=== PATIENT | female | born 1940 | race Caucasian/White ===

== ENCOUNTER → 2017-01-07 15:39 | Outpatient (CLI) | payer MEDICARE ==
[2016-05-05 02:56] VITALS: BMI 31.8
[~2017-01-07 15:39] MED LIST: COREG12.5 MG PO; COREG25 MG PO; COUMADIN5 MG PO; GLIMEPIRIDE1 MG PO; GLUCOPHAGE1000 MG PO; LANOXIN250 MCG PO; NORVASC10 MG PO; OMEPRAZOLE20 M1 PO; PRINIVIL10 MG PO
[2017-01-07 16:46] LABS: INR 2.88 (0.85-1.17); PROTIME 30.4 SECONDS (11.6-15.0)
== END | disposition home or self-care (01) ==
LOC: D.LABREF 15:39
PROVIDERS: Family Medicine
DX: I48.91 Unspecified atrial fibrillation (principal)

== ENCOUNTER → 2017-02-06 18:40 | Outpatient (CLI) | payer MEDICARE ==
[2016-05-05 02:56] VITALS: BMI 31.8
[2017-02-06 20:07] LABS: INR 1.9 (0.85-1.17); PROTIME 21.8 SECONDS (11.6-15.0)
== END | disposition home or self-care (01) ==
LOC: D.LABREF 18:40
PROVIDERS: Family Medicine
DX: Z79.01 Long term (current) use of anticoagulants (principal); Z51.81 Encounter for therapeutic drug level monitoring

== ENCOUNTER → 2017-02-26 14:25 | Outpatient (CLI) | payer MEDICARE ==
[2016-05-05 02:56] VITALS: BMI 31.8
[2017-02-26 15:41] LABS: INR 2.76 (0.85-1.17); PROTIME 29.4 SECONDS (11.6-15.0)
== END | disposition home or self-care (01) ==
LOC: D.LABREF 14:25
PROVIDERS: Family Medicine
DX: Z51.81 Encounter for therapeutic drug level monitoring (principal); Z79.01 Long term (current) use of anticoagulants

== ENCOUNTER → 2017-03-28 19:14 | Outpatient (CLI) | payer MEDICARE ==
[2016-05-05 02:56] VITALS: BMI 31.8
[2017-03-28 19:49] LABS: INR 3.32 (0.85-1.17)
== END | disposition home or self-care (01) ==
LOC: D.LABREF 19:14
PROVIDERS: Family Medicine
DX: I48.91 Unspecified atrial fibrillation (principal)

== ENCOUNTER → 2017-04-30 19:31 | Outpatient (CLI) | payer MEDICARE ==
[2016-05-05 02:56] VITALS: BMI 31.8
[2017-04-30 19:53] LABS: INR 4.92 (0.85-1.17); PROTIME 46.6 SECONDS (11.6-15.0)
== END | disposition home or self-care (01) ==
LOC: D.LABREF 19:31
PROVIDERS: Family Medicine
DX: I48.91 Unspecified atrial fibrillation (principal)

== ENCOUNTER → 2017-07-30 20:50 | Outpatient (CLI) | payer MEDICARE ==
[2016-05-05 02:56] VITALS: BMI 31.8
[2017-07-30 21:33] LABS: INR 2.43 (0.85-1.17); PROTIME 26.5 SECONDS (11.6-15.0)
== END | disposition home or self-care (01) ==
LOC: D.LABREF 20:50
PROVIDERS: Family Medicine
DX: I48.91 Unspecified atrial fibrillation (principal)

== ENCOUNTER → 2017-08-02 08:25 | Outpatient (CLI) | payer MEDICARE ==
[2016-05-05 02:56] VITALS: BMI 31.8
== END | disposition home or self-care (01) ==
LOC: D.RAD 08:25
DX: R13.10 Dysphagia, unspecified (principal)

== ENCOUNTER → 2018-04-18 07:08 | Outpatient (CLI) | payer MEDICARE ==
[2016-05-05 02:56] VITALS: BMI 31.8
== END | disposition home or self-care (01) ==
LOC: D.MAMMO 07:08
DX: Z12.31 Encounter for screening mammogram for malignant neoplasm of breast (principal); R07.9 Chest pain, unspecified

== ENCOUNTER → 2018-04-22 07:13 | Outpatient (CLI) | payer MEDICARE ==
[2016-05-05 02:56] VITALS: BMI 31.8
[~2018-04-22 07:13] MED LIST changes: +ALPHAGAN P15 ML EACH EYE; +CARAFATE1 G/10 ML PO; +COUMADIN7.5 MG PO; +FLORASTOR250 MG PO; +LEVAQUIN250 MG PO; +LOVENOX40 MG/0.4 SC; +NORCO 7.5/325 T1 TA1 PO; +PLAVIX75 MG PO; +PROTONIX40 MG PO
== END | disposition home or self-care (01) ==
LOC: D.CT 07:13
DX: R13.10 Dysphagia, unspecified (principal)

== ENCOUNTER → 2018-05-15 07:51 | Outpatient (CLI) | payer MEDICARE ==
[2016-05-05 02:56] VITALS: BMI 31.8
[2018-05-15 08:38] LABS: ANION GAP 14.3 mmol/L (8-16); CREATININE - SERUM 1.8 mg/dL (0.6-1.3); POTASSIUM - SERUM 3.3 mmol/L (3.5-5.1)
== END | disposition home or self-care (01) ==
LOC: D.LAB 07:51 → D.MRI 08:30 → D.MAMMO 09:30
PROVIDERS: Family Medicine
DX: R16.0 Hepatomegaly, not elsewhere classified (principal)

== ENCOUNTER 2018-05-19 21:35 | Inpatient (IN) | payer MEDICARE ==
[~2018-05-19] VITALS: Ht 162.6 cm; Wt 75.1 kg
--- NOTE | ~2018-05-19 | OP ---
PATIENT NAME: PAPO MAHMOOD MEDICAL RECORD: [id number] :40 LOCATION:D.M2 D.2120 ADMISSION DATE:05/20/18 SURGEON: RODNEY MARTINEZ MD DATE OF OPERATION: 05/22/2018 SURGEON: Rodney Martinez MD ANESTHESIA: General, Dr. Meneses. OPERATION PERFORMED: Insertion of single chamber pacing system. PREOPERATIVE DIAGNOSIS: Chronic atrial fibrillation with profound bradycardia. POSTOPERATIVE DIAGNOSES: Chronic atrial fibrillation with profound bradycardia. INDICATION FOR OPERATION: Bradycardia. FINDINGS OF THE OPERATION: The pacemaker Medtronic model #A3SR01, serial #[id number]. Right ventricular lead Medtronic model #5076-52, serial #[id number]. LEAD ANALYSIS: Atrial lead none. Ventricular lead, threshold 0.3 volts, current lead threshold 0.5 milliamps, resistance 1110 ohms. R-wave 12.4, slew rate 2.3. ESTIMATED BLOOD LOSS: Less than 3 mL. DESCRIPTION OF PROCEDURE: After informed consent, adequate preoperative medication evaluation, the patient was brought to the operating room, placed on the table in the supine position. After induction of general endotracheal anesthesia and application of appropriate monitoring devices, left chest was prepped and draped in sterile field, utilizing Betadine scrub, alcohol, and Betadine solution. A Betadine-impregnated drape was also used, 1% lidocaine was infiltrated in the left subclavicular space. Incision was made. Dissection carried down to the fascia. A pacemaker pocket was formed. Subclavian vein was cannulated with the introducers, leads placed in the heart. The above electrophysiologic study was done. Leads were found to be in good position. The leads were secured. The leads were then connected to pulse generator and pacemaker placed in the pocket. Pacemaker fired, captured, and sensed appropriately. Pocket was irrigated. Instrument count and sponge count were correct times 2. The pacemaker was suspended from the muscle. Instrument count, sponge count again correct. The wound was closed in layers utilizing 3-0 Vicryl on deep subcutaneous tissue, 3-0 Vicryl on superficial subcutaneous tissue, and 5-0 subcuticular Monocryl on skin. Sterile dressings were applied. The patient tolerated the procedure well and was transferred to the ICU in satisfactory condition. TRANSINT:[id number] Voice Confirmation ID: [id number] DOCUMENT ID: [id number] OPERATIVE REPORT [id number] PAPO MAHMOOD EDWARD MD at 1309 CC: [id number] DICTATION DATE: 05/22/18 170 AREA MANAGER: 05/22/18 1728 DIS IN 05/28/18 [place] [address] [address] [place] [address]
--- NOTE | ~2018-05-19 | OP ---
PATIENT NAME: PAPO MAHMOOD MEDICAL RECORD: [id number] :40 LOCATION:D.M2 D.2120 ADMISSION DATE:05/20/18 SURGEON: EMILY VEGA MD DATE OF OPERATION: 05/25/2018 DATE OF SERVICE: 05/25/2018 PROCEDURES: 1. Left heart catheterization. 2. Selective coronary angiography. 3. Left ventriculogram. INDICATION: Myocardial infarction. DESCRIPTION OF PROCEDURE: After informed consent was obtained, after detailed description of risks, benefits as well as alternative therapies, the patient elected to proceed with angiogram and heart catheterization. The right femoral area was prepped and draped in normal sterile fashion. Right femoral artery was cannulated via modified Seldinger technique with placement of 5-Colombian sheath. All catheters exchanged through this sheath. FINDINGS: Left ventriculogram was performed in standard 30-degree VIVAS view, reveals inferoapical hypokinesis. Overall ejection fraction 40%. SELECTIVE CORONARY ANGIOGRAPHY: Left main, left anterior descending, left circumflex, right coronary artery are all smooth-walled vessels with no angiographic evidence of coronary artery disease. OVERALL IMPRESSION: 1. No angiographic evidence of coronary artery disease. 2. Mildly depressed left ventricular systolic function. Most likely her myocardial infarction with an embolic event from the atrial fibrillation down the left anterior descending; however, the left anterior descending is widely patent now. No significant coronary artery disease is present. Center medical management on anticoagulation for the atrial fibrillation. TRANSINT:[id number] Voice Confirmation ID: [id number] DOCUMENT ID: [id number] EMILY VEGA MD at 1741 CC: [id number] DICTATION DATE: 05/25/18 1055 BURR PICKER: 05/25/18 1238 DIS IN 05/28/18 [place] [address] [place] [address]
--- NOTE | ~2018-05-19 | DS ---
PATIENT:PAPO MAHMOOD :40 MEDICAL RECORD: [id number] DISCHARGE SUMMARY ADMISSION DATE: 05/20/18 DISCHARGE DATE: 05/28/18 DATE OF ADMISSION: 05/20/2018 DATE OF DISCHARGE: 05/28/2018 CONDITION ON DISCHARGE: Improved. ADMITTING DIAGNOSES: Abdominal pain, dehydration, diabetes mellitus, bradycardia, chronic atrial fibrillation, hypertension. DISCHARGE DIAGNOSES: Chest pain, chronic atrial fib, acute myocardial infarction, acute kidney failure, urinary tract infection, bradycardia, diabetes mellitus, pseudomonas, hypokalemia, hypocalcemia, hypomagnesemia. PROCEDURE: Pacemaker placement. HOSPITAL COURSE: A 77-year-old female who had 2-week history of abdominal pain and nausea. She was evaluated in the office by Dr. Up and found to have a normal CBC, was given IV fluids, felt that the patient had worsened overnight with nausea and vomiting, presented to the Emergency Room. CT scan showed possible small bowel enteritis. The patient also had Coumadin as well as dig toxicity. It was felt the patient warranted admission. On physical examination, she was afebrile. She did have significant bradycardia. The patient was admitted. Echocardiogram was performed. Echocardiogram revealed left ventricular chamber size to be within normal limits. Her ejection fraction was 40%. She did have hypokinesis at the apex. Left atrium, right atrium, right ventricle sizes were mildly dilated. Valvular structures had normal structure and motion. Aquj-ou-qzvyrnht mitral regurg. Moderate tricuspid regurg. No other valvular insufficiency or stenosis were noted. No mural thrombus. She was seen by Dr. Wheeler, her radiation control technician. Her digoxin and Coumadin had been held. She was placed on Flagyl. The patient underwent a heart cath. Overall, no angiographic evidence of coronary artery disease, mildly depressed left ventricular systolic function. Most likely her myocardial infarction with an old embolic event from atrial fibrillation down the left descending, however, the left anterior descending widely patent. The patient's condition continued to slowly improve. She was seen in consultation by Dr. Martinez, cardiovascular surgeon. He did place a pacemaker in the left anterior chest on the afternoon of May 22. On May, the patient's symptoms had totally resolved. She was treated with Keflex for UTI. On May, white count was 7.9, hemoglobin 10.7, hematocrit was 32.7, and her platelets were 282. Sodium was 141, potassium 3.3, chloride was 101, CO2 is 34.6, BUN 11, creatinine 1.4, magnesium was slightly low at 1.3. Urine did grow out pseudomonas and VRE. Clostridium difficile was negative. Her PT was 17.1 with an INR of 1.44. The patient was therefore discharged. DISCHARGE MEDICATIONS: She was discharged on Levaquin 250 mg 1 p.o. every day for 7 days, Plavix 75 mg 1 p.o. every day, Coumadin 7.5 mg daily, carvedilol 25 mg p.o. b.i.d., Protonix 40 mg once a day, Florastor 250 mg capsules once a day, Carafate 1 g q.a.c. and at bedtime. Her digoxin had been discontinued as well as omeprazole. DISCHARGE INSTRUCTIONS: The patient was to continue metformin 1000 mg p.o. DISCHARGE SUMMARY REPORT [id number] PAPO MAHMOOD b.i.d., lisinopril 10 mg once a day, amlodipine 10 mg once a day, Amaryl 1 mg p.o. every day. The patient was discharged home on a 2200-calorie ADA diet. ACTIVITIES: Ad mari. FOLLOWUP: She was to follow up with Dr. Up the following day. She would call for appointment with the physiognomist as well as the radiation control technician. TRANSINT:[id number] Voice Confirmation ID: [id number] DOCUMENT ID: [id number] KAYLA LBANCO MD at 0729 CC: [id number] DICTATION DATE: 07/20/18 1116 AUTOCAD OPERATOR: 07/21/18 0437 DIS IN 05/28/18 [place] [id number]
--- NOTE | ~2018-05-19 | EC ---
PATIENT:PAPO MAHMOOD DATE OF SERVICE: 05/20/18 SEX: F MEDICAL RECORD: [id number] DATE OF : 40 LOCATION:D.M2 D.212 AGE OF PATIENT: 77 ADMISSION DATE: 05/20/18 REFERRING PHYSICIAN: INTERPRETING PHYSICIAN: EMILY VEGA MD ECHOCARDIOGRAM REPORT ECHO CHARGES 5 ECHO LIMITED Date: 05/23 CLINICAL DIAGNOSIS: SOB POST PACEMAKER ECHOCARDIOGRAPHIC MEASUREMENTS (adult normal given) AC root (d.<3.7cm) 3.4 cm LV Septum d (<1.2 cm> 1.4 cm Valve Excursion 1.5 cm LV Septum (systole) 1.6 cm Left Atria (s.<4.0cm> 4.4 cm LVPW d(<1.2cm) 1.4 cm RV (d.<2.3cm) 3.9 cm LVPW (sytole) 1.7 cm LV diastole(<5.6CM) 4.8 cm MV E-F(>70mm/sec) cm LV systole 3.9 cm LVOT Diameter 1.8 cm MV exc.(>10mm) 2.0 cm Est.ejection fraction (50-75%) % DOPPLER: LVIT cm/sec A 23.0 cm/sec E 158 cm/sec LA cm/sec RVSP 50 mmHg LVOT 148 cm/sec AOP1/2T m/s Asc. Ao 182 cm/sec RVOT 87 cm/sec RA cm/sec PA 128 cm/sec AV Gradient Peak 13.23mmHg AV Mean 6.89 mmHg AV Area 2.3 cm MV Gradient Peak 17.73mmHg MV Mean 4.27 mmHg MV Area cm COMMENTS: Recruiting Consultant: Marc OSHEA Board Layer: 2 Dr. Tejeda TAPE# PACS Pericardial Effusion N DATE OF SERVICE: 05/23/2018 PROCEDURE: Echocardiogram. FINDINGS: 1. Left ventricular chamber size is within normal limits. Left ventricular systolic function is mildly depressed at 40%. There is definite hypokinesis of the apex. 2. Left atrium, right atrium, and right ventricle chamber sizes are mildly dilated. ECHOCARDIOGRAM REPORT [id number] PAPO MAHMOOD 3. Valvular structures have normal structure and motion. 4. Doppler interrogation reveals lzit-xd-twtdjuzr mitral regurgitation, moderate tricuspid regurgitation, no other valvular insufficiency or stenosis. 5. No evidence of pericardial effusion or left ventricular thrombus. TRANSINT:[id number] Voice Confirmation ID: [id number] DOCUMENT ID: [id number] EMILY VEGA MD at 2001 CC: [id number] DICTATION DATE: 05/23/18 1636 OIL PROCESSING TECHNICIAN: 05/23/18 1737 ADM IN [facility] [address] [place] [address]
--- NOTE | ~2018-05-19 | HEMODYNAMI ---
PATIENT:PAPO MAHMOOD MEDICAL RECORD: [id number] : 40 LOCATION:[facility].2120 ADMISSION DATE: 05/20/18 Generatedon:05/25/201810:58 Patient name: PAPO MAHMOOD Patient #: [id number] SSN: D OB: 1940 Date of study: 05/25/2018 Page: Of Hemodynamic Procedure Report Patient Data Patient Demographics Procedure consent was obtained First Name: PAPO Gender: Female Last Name: ELA : 1940 Patient #: [id number] Age: 77 year(s) Race: Additional ID: [id number] Contact details Address: [address] [place] [address] rd State: [place] City: [facility] Zip code: [address] Admission Admission Data Admission Date: 05/20/2018 Admission Time: 7:24 Room #: 2120 Procedure Procedure Types Cath Procedure Diagnostic Procedure C [facility] w/Coronaries Procedure Description Procedure Date Procedure Date: 05/25/2018 Procedure Start Time: 10:46 Procedure End Time: 10:57 Procedure Staff Name Function Magan Yi MD Performing Physician Ze Denney RT Monitor Jeri Guadarrama RN Nurse Elba Scott RT Scrub Procedure Data Cath Procedure Fluoroscopy Diagnostic fluoroscopy Total fluoroscopy Time: 0.8 time: 0.8 min min Diagnostic fluoroscopy Total fluoroscopy dose: 449 dose: 449 mGy mGy Contrast Material Contrast Material Type Amount (ml) Isovue 300 50 Entry Location Entry Primary Successful Side Size Upsize Upsize Entry Closure Succes sful Closure Location (Fr) 1 (Fr) 2 (Fr) Remarks Device Remarks Femoral Right 5 Fr Exoseal artery Estimated blood loss: 10 ml Diagnostic catheters Device Type Used For End Catheter Placement MULTIPACK Pigtail 5 Fr Procedure catheter MULTIPACK JL 4.0 5Fr Procedure catheter MULTIPACK 3DRC 5Fr Procedure catheter Procedure Complications No complications Procedure Medications Medication Administration Route Dosage Oxygen NC 2 l/min Lidocaine 2% added to field 20 Heparin Flush Bag added to field 2 bags (1000units/500ml NS) 0.9% NaCl I.V. 100 ml/hr Versed I.V. 1 mg Fentanyl I.V. 50 mcg Hemodynamics Rest Heart Rate: 60 (bpm) Snapshots Pre Cath Intra NCS Post Cath Vital Signs Time Heart Resp SPO2 etCO2 NIBP (mmHg) Rhythm Pain Sedation Rate (ipm) (%) (mmHg) Status Level (bpm) 10:34:39 60 17 100 0 124/70(101) Paced 0 (11) 10(A) , No pain 10:39:20 59 22 100 0 122/68(97) Paced 0 (11) 10(A) , No pain 10:43:57 60 24 100 0 107/64(90) Paced 0 (11) 10(A) , No pain 10:49:12 62 15 98 0 110/57(102) Paced 0 (11) 10(A) , No pain 10:52:47 62 15 97 0 102/62(83) Paced 0 (11) 10(A) , No pain 10:57:24 60 19 98 0 105/61(84) Paced 0 (11) 10(A) , No pain Medications Time Medication Route Dose Verified Delivered Reason Notes Effec tiveness by by 10:41:10 Oxygen NC 2 Magan Buffie used for l/min Kd Guadarrama RN procedure 10:41:18 Lidocaine 2% added 20ml Magan Buffie used for to vial Kd Guadarrama RN procedure field 10:41:24 Heparin Flush added 2 Magan Buffie used for Bag to bags Kd Guadarrama RN procedure (1000units/500ml field NS) 10:41:32 0.9% NaCl I.V. 100 Magan Buffie Per ml/hr Kd Guadarrama RN physician 10:44:16 Versed I.V. 1 mg Magan Buffie for Kd Guadarrama RN sedation 10:44:22 Fentanyl I.V. 50 Magan Buffie for mcg Kd Guadarrama RN sedation Procedure Log Time Note 10:05:23 Time tracking: Call back (After hours or weekends) 10:05:33 Plan of Care:Hemodynamics will remain stable., Cardiac rhythm will remain stable., Comfort level will be maintained., Respiratory function will remain adequate., Patient/ family verbilizes understanding of procedure., Procedure tolerated without complication., Recovers from procedure without complications.. 10:20:02 Jeri Guadarrama RN sent for patient. Start room use. 10:27:27 Patient received from PCU to CCL 1 Alert and oriented. Tansferred to table in Supine position. 10:27:28 Warm blankets applied, and stew hugger turned on for patient comfort. 10:27:29 Correct patient and procedure confirmed by team. 10:27:30 Signed procedure consent form obtained from patient. 10:27:31 ECG and BP/O2 sat monitors applied to patient. 10:27:32 Full Disclosure recording started 10:33:49 Vital chart was started 10:38:08 Rhythm: paced 10:41:10 Oxygen 2 l/min NC was administered by Jeri Guadarrama RN; used for procedure; 10:41:18 Lidocaine 2% 20ml vial added to field was administered by Jeri Guadarrama RN; used for procedure; 10:41:24 Heparin Flush Bag (1000units/500ml NS) 2 bags added to field was administered by Jeri Guadarrama RN; used for procedure; 10:41:32 0.9% NaCl 100 ml/hr I.V. was administered by Jeri Guadarrama RN; Per physician; 10:41:35 H&P Date Dictated: 05/24/2018 Within 30 days and on chart.. 10:41:35 Pre-procedure instructions explained to patient. 10:41:36 Pre-op teaching completed and patient verbalized understanding. 10:41:39 Family in waiting room. 10:41:41 Patient NPO since Midnight. 10:41:44 Is the patient allergic to Iodine/contrast media? No. 10:41:56 Is patient on blood thinner?Yes 10:42:00 ACC The patient was administered the following blood thiners within the last 24 hours: ACCPlavix 10:42:02 Patient diabetic? Yes. 10:42:03 If diabetic: On Metformin? No 10:42:07 Previous problem with sedation/anesthesia? No ? 10:42:32 Snore? No 10:42:33 Sleep apnea? No 10:42:34 Deviated septum? No 10:42:35 Opens mouth fully? Yes 10:42:35 Sticks out tongue? Yes 10:42:39 Airway obstruction? No ? 10:42:42 Dentures? Yes OUT 10:42:47 Pre procedure: right dorsailis pedis pulse 1+ Palpable, but thready & weak; easily obliterated 10:42:54 Patient pain scale 0/10 ?. 10:43:00 IV patent on arrival in left forearm with 0.9% NaCl at [facility]. 10:43:06 Lab results completed and on chart. 10:43:10 Right groin area was prepped with chlora-prep and draped in sterile fashion 10:43:11 Alarms reviewed by R. N. 10:43:11 Sharps counted by scrub and verified by R.N. 10:43:13 --------ALL STOP TIME OUT------ 10:43:13 Final Timeout: patient, procedure, and site verified with staff and physician. All members of the team are in agreement. 10:43:15 Right groin site verified by team. 10:43:18 Physical assessment completed. ASA score P 2 - A patient with mild systemic disease as per Magan Yi MD. 10:43:21 Sedation plan: IV Moderate Sedation Medication:Versed, Fentanyl 10:44:16 Versed 1 mg I.V. was administered by Jeri Guadarrama RN; for sedation; 10:44:22 Fentanyl 50 mcg I.V. was administered by Jeri Guadarrama RN; for sedation; 10:46:44 Procedure started. 10:46:47 Local anesthetic to right femoral artery with Lidocaine 2% by Magan Yi MD.INITIAL ACCESS ONLY 10:46:59 Use device set Femoral Dx 10:47:01 PERCUTANEOUS ENTRY 19GA needle opened to sterile field. 10:47:02 Tegaderm 4 x 4 (1626W) opened to sterile field. 10:47:03 ACIST Manifold (26677) opened to sterile field. 10:47:03 ACIST Hand Control (33933) opened to sterile field. 10:47:07 Zero performed for pressure channel P1 10:47:11 Medline Cath Pack ([id number]) opened to sterile field. 10:47:12 ACIST Syringe (29019) opened to sterile field. 10:47:13 Bag Decanter () opened to sterile field. 10:47:14 DIAGNOSTIC WIRE .035 260cm J wire (077750) opened to sterile field. 10:47:15 DIAGNOSTIC Multipack 5Fr catheter set ([id number]) opened to sterile field. 10:47:17 SHEATH Prelude 5Fr 0.035 (DRR-2H-73-035) opened to sterile field. 10:47:30 A 5 Fr sheath was inserted into the Right Femoral artery 10:47:37 A MULTIPACK Pigtail 5 Fr catheter was advanced over the wire and used for Procedure. 10:47:39 LV angiography performed. 10:47:40 LV gram done using VIVAS 10:47:46 EF : 40 % 10:47:51 Injector settings: Ml/sec: 10, Volume: 20, 10:47:53 Catheter removed. 10:47:56 Baseline sample Acquired. 10:48:02 A MULTIPACK JL 4.0 5Fr catheter was advanced over the wire and used for Procedure. 10:49:15 LCA angiography performed. 10:49:20 Catheter removed. 10:49:26 A MULTIPACK 3DRC 5Fr catheter was advanced over the wire and used for Procedure. 10:50:16 RCA angiography performed. 10:50:17 Catheter removed. 10:50:25 EXOSEAL 5Fr (EX500) opened to sterile field. 10:50:38 Sheath removed intact; hemostasis achieved with Exoseal to the Right Femoral artery. 10:50:42 Procedure ended.(Physican Out) 10:52:00 Fluoroscopy time 00.80 minutes. 10:52:05 Fluoroscopy dose: 449 mGy 10:52:05 Flurop Dose total: 449 10:52:10 Contrast amount:Isovue 300 50ml. 10:52:12 Sharps counted by scrub and verified by R.N. 10:52:14 Insertion/operative site no bleeding no hematoma. 10:52:19 Post-op/insertion site Right Femoral artery dressed using a 4 x 4 and Tegaderm. 10:52:20 Post Procedure Pulses reassessed and unchanged 10:52:23 Post-procedure physical assessment completed. ASA score P 2 - A patient with mild systemic disease as per Magan Yi MD. 10:52:26 Post procedure rhythm: unchanged. 10:52:29 Estimated blood loss: 10 ml 10:52:31 Post procedure instruction explained to patient.Patient verbalizes understanding. 10:52:31 Patient needs reinforcement of post procedure teaching. 10:53:31 Procedure and supply charges have been captured, reviewed, submitted and are correct. 10:53:34 Procedure Complication : No complications 10:56:48 Vital chart was stopped 10:56:48 See physician's report for complete and final results. 10:57:27 Report given to PCU. 10:57:31 Patient transfered to PCU with Bed. 10:57:35 Procedure ended. 10:57:35 Full Disclosure recording stopped 10:57:39 End room use (Document Last) Device Usage Item Name Manufacture Quantity Catalog Number Hospital Part Current M inimal Lot# / Charge Number Stock Stock Serial# Code PERCUTANEOUS Cook Medical 1 [id number] 372164 5 ENTRY 19GA needle Tegaderm 4 x 4 3M 1 1626W 636746 452306 020869 5 (1626W) ACIST Manifold Acist 1 68817 599366 771134 236069 5 (69246) [employer] Inc ACIST Hand Acist 1 41444 827467 064233 198565 5 Control (41243) [employer] Inc Medline Cath Cardinal 1 [id number] 473642 46395 246569 5 Pack Health ([id number]) ACIST Syringe Acist 1 12444 590800 467638 374403 2 0 (17646) [employer] Bag Decanter Microtek 1 2001S 556485 17093 480695 5 (2001S) Medical Inc. DIAGNOSTIC WIRE St Jim 1 082963 089858 217058 507943 3 0 .035 260cm J wire (818509) DIAGNOSTIC Cardinal 1 UH8483 020944 89145 053338 3 0 Multipack 5Fr Health catheter set ([id number]) SHEATH Prelude Merit 1 HHU-3K-74-035 639540 906225 401048 5 5Fr 0.035 Medical (YPZ-1L-15-035) MULTIPACK Cardinal 1 [id number] 5 Pigtail 5 Fr Health catheter MULTIPACK JL Cardinal 1 [id number] 5 4.0 5Fr Health catheter MULTIPACK 3DRC Cardinal 1 423152 5 5Fr catheter Health EXOSEAL 5Fr Cardinal 1 EX500 126678 450121 130079 1 0 (EX500) Health Signature Audit [place] Stage Time Signature Unsigned Intra-Procedure 05/25/2018 Ze Denney 10:58:17 AM RT(R) Signatures Monitor : Ze Denney RT Signature : Date : Time : [place] [place] [address]
--- NOTE | ~2018-05-19 | EC ---
PATIENT:PAPO MAHMOOD DATE OF SERVICE: 05/20/18 SEX: F MEDICAL RECORD: [id number] DATE OF : 40 LOCATION:[facility] AGE OF PATIENT: 77 ADMISSION DATE: 05/20/18 REFERRING PHYSICIAN: INTERPRETING PHYSICIAN: EMILY YI MD ECHOCARDIOGRAM REPORT ECHO CHARGES 4 ECHO COMPLETE Date: 05/21 CLINICAL DIAGNOSIS: DIG/TOX, ASSESS EF/VALVES, BRADYCARDIA HX OF HTN ECHOCARDIOGRAPHIC MEASUREMENTS (adult normal given) AC root (d.<3.7cm) 3.4 cm LV Septum d (<1.2 cm> 1.4 cm Valve Excursion 1.5 cm LV Septum (systole) 1.6 cm Left Atria (s.<4.0cm> 5.0 cm LVPW d(<1.2cm) 1.4 cm RV (d.<2.3cm) 4.1 cm LVPW (sytole) 1.7 cm LV diastole(<5.6CM) 6.0 cm MV E-F(>70mm/sec) cm LV systole 4.0 cm LVOT Diameter 1.8 cm MV exc.(>10mm) 2.0 cm Est.ejection fraction (50-75%) % DOPPLER: LVIT cm/sec A 23.0 cm/sec E 158 cm/sec LA cm/sec RVSP 55 mmHg LVOT 148 cm/sec AOP1/2T m/s Asc. Ao 182 cm/sec RVOT 87 cm/sec RA cm/sec PA 128 cm/sec AV Gradient Peak 13.23mmHg AV Mean 6.89 mmHg AV Area 2.3 cm MV Gradient Peak 17.73mmHg MV Mean 4.27 mmHg MV Area cm COMMENTS: Entry Analyst: Marc OSHEA Radio Time Sales Supervisor: 1 Dr. Yi TAPE# PACS Pericardial Effusion N DATE OF SERVICE: 05/21/2018 PROCEDURE: Echocardiogram. FINDINGS: 1. Left ventricular chamber size is within normal limits. Left ventricular systolic function is normal. Overall ejection fraction estimated at 55%. Left atrium is enlarged at 5.0 cm. Right atrium and right ventricular chamber sizes are as well moderately dilated. 2. Valvular structures have normal structure and motion. ECHOCARDIOGRAM REPORT [id number] PAPO MAHMOOD 3. Doppler interrogation reveals ekcp-tu-czjhvsfr mitral regurgitation, moderate tricuspid regurgitation, no other valvular insufficiency or stenosis. Pulmonary systolic pressure is elevated, estimated at 55 mmHg. 4. No evidence of pericardial effusion or left ventricular thrombus. TRANSINT:[id number] Voice Confirmation ID: [id number] DOCUMENT ID: [id number] EMILY YI MD at 1207 CC: [id number] DICTATION DATE: 05/21/18 1159 INFLATABLE BUILDINGS LAMINATOR: 05/21/18 1210 ADM IN [place] [address] [place] [address]
[~2018-05-19 21:35] MED LIST changes: -ALPHAGAN P15 ML EACH EYE; -CARAFATE1 G/10 ML PO; -COUMADIN7.5 MG PO; -FLORASTOR250 MG PO; -LEVAQUIN250 MG PO; -LOVENOX40 MG/0.4 SC; -NORCO 7.5/325 T1 TA1 PO; -PLAVIX75 MG PO; -PROTONIX40 MG PO
[2018-05-19] MEDS ORDERED: ALPHAGAN P15 ML EACH EYE (21:54)
[2018-05-19 22:42] LABS: BASOPHILS 0.1 % (0-2); EOSINOPHILS 0.3 % (0-7); HEMATOCRIT 36.6 % (36.0-48.0); HEMOGLOBIN 12.2 g/dL (12-16); IMMATURE GRANULOCYTES 0.5 % (0-5); LYMPHOCYTES 12.8 % (15-50); MCH 28.3 pg (26.0-34.0); MCHC 33.3 g/dL (31.0-37.0); MCV 84.9 fL (80.0-100.0); MEAN PLATELET VOLUME 9.7 fL (7.4-10.4); MONOCYTES 8.1 % (2-11); NEUTROPHILS 78.2 % (40-80); RBC 4.31 10x6/uL (4.00-5.40); RDW 13.1 % (11.5-14.5); WBC 10.3 10x3/uL (4.8-10.8)
[2018-05-19 22:45] LABS: PLATELET COUNT 220 10x3/uL (130-400)
[2018-05-19 22:53] LABS: INR 4.71 (0.85-1.17); PROTIME 43.4 SECONDS (11.6-15.0)
[2018-05-19 23:02] VITALS: BP 142/61
[2018-05-19 23:02] LABS: ANION GAP 12.4 mmol/L (8-16); BILIRUBIN - TOTAL 0.4 mg/dL (0.2-1.3); CALCIUM 8.3 mg/dL (8.5-10.1); CARBON DIOXIDE 24.6 mmol/L (21.0-32.0); PROTEIN - SERUM 6.9 g/dL (6.4-8.2)
[2018-05-19 23:10] LABS: DIGOXIN 2.5 ng/mL (0.90-2.00)
[2018-05-19 23:21] LABS: APPEARANCE CLEAR (CLEAR); BILIRUBIN NEGATIVE (NEGATIVE); COLOR YELLOW (YELLOW); GLUCOSE NEGATIVE (NEGATIVE); KETONE NEGATIVE (NEGATIVE); NITRITE NEGATIVE (NEGATIVE); PROTEIN 1+ mg/dL (NEGATIVE); SPECIFIC GRAVITY 1.015 (1.005-1.020); UROBILINOGEN NORMAL (NORMAL)
[2018-05-19 23:25] LABS: BACTERIA MODERATE /hpf (NONE SEEN); EPITHELIAL CELLS 0-5 /hpf (0-5); HYALINE CAST 0-5 /lpf (NONE SEEN); RED CELLS - URINE NONE SEEN /hpf (0-5)
[2018-05-20] VITALS (30 sets, daily range): BP systolic 103–162; BP diastolic 42–83; BMI 28.4
[2018-05-20 10:58] LABS: ANION GAP 11.3 mmol/L (8-16); CALCIUM 7.6 mg/dL (8.5-10.1); CARBON DIOXIDE 24.9 mmol/L (21.0-32.0); CREATININE - SERUM 1.6 mg/dL (0.6-1.3); POTASSIUM - SERUM 3.2 mmol/L (3.5-5.1)
[2018-05-21] VITALS (24 sets, daily range): BP systolic 88–153; BP diastolic 50–87; Ht 162.6 cm; Wt 75.1 kg
[2018-05-21 04:34] LABS: BASOPHILS 0.2 % (0-2); EOSINOPHILS 0.7 % (0-7); HEMATOCRIT 31.7 % (36.0-48.0); HEMOGLOBIN 10.3 g/dL (12-16); IMMATURE GRANULOCYTES 0.4 % (0-5); LYMPHOCYTES 15.8 % (15-50); MCHC 32.5 g/dL (31.0-37.0); MCV 86.1 fL (80.0-100.0); MONOCYTES 10.8 % (2-11); NEUTROPHILS 72.1 % (40-80); PLATELET COUNT 190 10x3/uL (130-400); RBC 3.68 10x6/uL (4.00-5.40); RDW 13.4 % (11.5-14.5); WBC 8.5 10x3/uL (4.8-10.8)
[2018-05-21 04:43] LABS: INR 4.73 (0.85-1.17); PROTIME 43.5 SECONDS (11.6-15.0)
[2018-05-21 05:17] LABS: ALBUMIN 2.4 g/dL (3.4-5.0); ANION GAP 9.2 mmol/L (8-16); BILIRUBIN - TOTAL 0.41 mg/dL (0.2-1.3); CALCIUM 7.2 mg/dL (8.5-10.1); CARBON DIOXIDE 24.9 mmol/L (21.0-32.0); CREATININE - SERUM 1.5 mg/dL (0.6-1.3); DIGOXIN 2.57 ng/mL (0.90-2.00); MAGNESIUM - SERUM 1.1 mg/dL (1.8-2.4); PHOSPHOROUS 2.6 mg/dL (2.5-4.9); POTASSIUM - SERUM 3.1 mmol/L (3.5-5.1); PROTEIN - SERUM 5.5 g/dL (6.4-8.2)
[2018-05-21 14:01] LABS: INR 1.82 (0.85-1.17); PROTIME 20.5 SECONDS (11.6-15.0)
[2018-05-21 18:54] LABS: POTASSIUM - SERUM 3.3 mmol/L (3.5-5.1)
[2018-05-21 18:59] LABS: MAGNESIUM - SERUM 2.6 mg/dL (1.8-2.4)
[2018-05-22] VITALS (22 sets, daily range): BP systolic 121–166; BP diastolic 50–96
[2018-05-22 04:06] LABS: BASOPHILS 0.1 % (0-2); EOSINOPHILS 0.7 % (0-7); HEMATOCRIT 31.1 % (36.0-48.0); HEMOGLOBIN 10.1 g/dL (12-16); IMMATURE GRANULOCYTES 0.6 % (0-5); LYMPHOCYTES 13.3 % (15-50); MCH 27.8 pg (26.0-34.0); MCHC 32.5 g/dL (31.0-37.0); MCV 85.7 fL (80.0-100.0); MEAN PLATELET VOLUME 10.1 fL (7.4-10.4); MONOCYTES 10.2 % (2-11); NEUTROPHILS 75.1 % (40-80); PLATELET COUNT 179 10x3/uL (130-400); RBC 3.63 10x6/uL (4.00-5.40); RDW 13.5 % (11.5-14.5); WBC 8.3 10x3/uL (4.8-10.8)
[2018-05-22 04:29] LABS: ANION GAP 12.7 mmol/L (8-16); BILIRUBIN - TOTAL 0.54 mg/dL (0.2-1.3); CALCIUM 7.7 mg/dL (8.5-10.1); CARBON DIOXIDE 24.6 mmol/L (21.0-32.0); CREATININE - SERUM 1.3 mg/dL (0.6-1.3); INR 1.2 (0.85-1.17); PHOSPHOROUS 1.8 mg/dL (2.5-4.9); POTASSIUM - SERUM 3.3 mmol/L (3.5-5.1); PROTEIN - SERUM 6.4 g/dL (6.4-8.2); PROTIME 14.8 SECONDS (11.6-15.0)
[2018-05-23 05:14] VITALS: BP 107/69
[2018-05-23 06:31] LABS: BASOPHILS 0.1 % (0-2); EOSINOPHILS 0.1 % (0-7); IMMATURE GRANULOCYTES 1.1 % (0-5); LYMPHOCYTES 3.5 % (15-50); MCHC 32.4 g/dL (31.0-37.0); MCV 86.4 fL (80.0-100.0); MEAN PLATELET VOLUME 10.5 fL (7.4-10.4); MONOCYTES 5.2 % (2-11); PLATELET COUNT 185 10x3/uL (130-400); RBC 4.28 10x6/uL (4.00-5.40); RDW 13.8 % (11.5-14.5)
[2018-05-23 06:50] LABS: WBC 16.1 10x3/uL (4.8-10.8)
[2018-05-23 06:59] LABS: ALBUMIN 3.2 g/dL (3.4-5.0); ANION GAP 16.4 mmol/L (8-16); BILIRUBIN - DIRECT 0.12 mg/dL (0.00-0.30); BILIRUBIN - INDIRECT 0.4 mg/dL (0.00-1.00); BILIRUBIN - TOTAL 0.52 mg/dL (0.2-1.3); CALCIUM 7.9 mg/dL (8.5-10.1); CARBON DIOXIDE 22.4 mmol/L (21.0-32.0); CREATININE - SERUM 1.2 mg/dL (0.6-1.3); MAGNESIUM - SERUM 1.5 mg/dL (1.8-2.4); PROTEIN - SERUM 7.2 g/dL (6.4-8.2)
[2018-05-23 07:00] LABS: PHOSPHOROUS 2.3 mg/dL (2.5-4.9); POTASSIUM - SERUM 3.8 mmol/L (3.5-5.1)
[2018-05-23 08:01] VITALS: BP 134/62
[2018-05-23 11:21] LABS: CKMB 5.2 U/L (0.0-3.6); CREATINE KINASE 143 UL (21-215)
[2018-05-23 11:25] LABS: TROPONIN-I 1.248 ng/mL (0.000-0.060)
[2018-05-23 11:32] VITALS: BP 135/69
[2018-05-23 12:02] VITALS: BP 133/69
[2018-05-23 15:03] LABS: CKMB 15.3 U/L (0.0-3.6)
[2018-05-23 15:04] LABS: CREATINE KINASE 284 UL (21-215)
[2018-05-23 15:38] VITALS: BP 175/83
[2018-05-23 20:33] VITALS: BP 125/60
[2018-05-23 21:03] LABS: CKMB 19.9 U/L (0.0-3.6); CREATINE KINASE 292 UL (21-215)
[2018-05-23 21:21] LABS: TROPONIN-I 4.079 ng/mL (0.000-0.060)
[2018-05-24 00:46] VITALS: BP 107/68
[2018-05-24 04:51] LABS: BASOPHILS 0.2 % (0-2); EOSINOPHILS 0 % (0-7); HEMOGLOBIN 10.9 g/dL (12-16); IMMATURE GRANULOCYTES 0.7 % (0-5); LYMPHOCYTES 12.2 % (15-50); MCH 27.9 pg (26.0-34.0); MCHC 32.1 g/dL (31.0-37.0); MEAN PLATELET VOLUME 10.3 fL (7.4-10.4); MONOCYTES 10.8 % (2-11); NEUTROPHILS 76.1 % (40-80); PLATELET COUNT 177 10x3/uL (130-400); RBC 3.91 10x6/uL (4.00-5.40); RDW 13.6 % (11.5-14.5)
[2018-05-24 04:52] LABS: WBC 11.2 10x3/uL (4.8-10.8)
[2018-05-24 04:59] LABS: INR 1.28 (0.85-1.17); PROTIME 15.5 SECONDS (11.6-15.0)
[2018-05-24 05:17] LABS: ALBUMIN 2.8 g/dL (3.4-5.0); ANION GAP 12.3 mmol/L (8-16); BILIRUBIN - TOTAL 0.47 mg/dL (0.2-1.3); CALCIUM 7.9 mg/dL (8.5-10.1); CREATININE - SERUM 1.4 mg/dL (0.6-1.3); DIGOXIN 1.69 ng/mL (0.90-2.00); MAGNESIUM - SERUM 1.4 mg/dL (1.8-2.4); PHOSPHOROUS 2.4 mg/dL (2.5-4.9); POTASSIUM - SERUM 3.6 mmol/L (3.5-5.1); PROTEIN - SERUM 6.6 g/dL (6.4-8.2)
[2018-05-24 05:23] LABS: CARBON DIOXIDE 28.3 mmol/L (21.0-32.0)
[2018-05-24 05:43] VITALS: BP 74/48
[2018-05-24 08:49] VITALS: BP 107/64
[2018-05-24 11:30] VITALS: BP 106/61
[2018-05-24 16:03] LABS: CKMB 8.9 U/L (0.0-3.6)
[2018-05-24 17:16] VITALS: BP 115/16
[2018-05-24 20:00] VITALS: BP 96/52
[2018-05-25] VITALS: BP 105/62
[2018-05-25 04:00] VITALS: BP 113/61
[2018-05-25 05:31] LABS: BASOPHILS 0.1 % (0-2); HEMATOCRIT 31.9 % (36.0-48.0); HEMOGLOBIN 10.3 g/dL (12-16); IMMATURE GRANULOCYTES 0.7 % (0-5); LYMPHOCYTES 15.6 % (15-50); MCH 28.2 pg (26.0-34.0); MCHC 32.3 g/dL (31.0-37.0); MCV 87.4 fL (80.0-100.0); MEAN PLATELET VOLUME 10.5 fL (7.4-10.4); MONOCYTES 11.9 % (2-11); NEUTROPHILS 68.7 % (40-80); PLATELET COUNT 188 10x3/uL (130-400); RBC 3.65 10x6/uL (4.00-5.40); RDW 13.4 % (11.5-14.5); WBC 9.7 10x3/uL (4.8-10.8)
[2018-05-25 05:47] LABS: INR 1.23 (0.85-1.17); PROTIME 15.1 SECONDS (11.6-15.0)
[2018-05-25 05:55] LABS: CALCIUM 7.9 mg/dL (8.5-10.1); CARBON DIOXIDE 28.4 mmol/L (21.0-32.0); CREATININE - SERUM 1.4 mg/dL (0.6-1.3); DIGOXIN 1.45 ng/mL (0.90-2.00); MAGNESIUM - SERUM 1.4 mg/dL (1.8-2.4); POTASSIUM - SERUM 3.4 mmol/L (3.5-5.1)
[2018-05-25 08:41] VITALS: BP 111/58
[2018-05-25 20:00] VITALS: BP 127/69
[2018-05-26 04:00] VITALS: BP 121/64
[2018-05-26 04:41] LABS: BASOPHILS 0.3 % (0-2); EOSINOPHILS 3.3 % (0-7); HEMATOCRIT 31.5 % (36.0-48.0); HEMOGLOBIN 10.2 g/dL (12-16); IMMATURE GRANULOCYTES 1.4 % (0-5); LYMPHOCYTES 15.5 % (15-50); MCH 28.3 pg (26.0-34.0); MCHC 32.4 g/dL (31.0-37.0); MCV 87.5 fL (80.0-100.0); MEAN PLATELET VOLUME 10.3 fL (7.4-10.4); MONOCYTES 12.6 % (2-11); NEUTROPHILS 66.9 % (40-80); PLATELET COUNT 198 10x3/uL (130-400); RDW 13.4 % (11.5-14.5); WBC 7.6 10x3/uL (4.8-10.8)
[2018-05-26 05:00] LABS: ANION GAP 12.1 mmol/L (8-16); CALCIUM 7.9 mg/dL (8.5-10.1); CARBON DIOXIDE 28.5 mmol/L (21.0-32.0); CREATININE - SERUM 1.4 mg/dL (0.6-1.3); POTASSIUM - SERUM 3.6 mmol/L (3.5-5.1)
[2018-05-26 08:10] VITALS: BP 118/58
[2018-05-26 11:31] VITALS: BP 136/79
[2018-05-26 15:57] VITALS: BP 124/68
[2018-05-26 17:11] LABS: CKMB 1.4 U/L (0.0-3.6)
[2018-05-26 20:00] VITALS: BP 103/55
[2018-05-27 05:38] LABS: BASOPHILS 0.3 % (0-2); EOSINOPHILS 1.9 % (0-7); HEMATOCRIT 31.4 % (36.0-48.0); HEMOGLOBIN 10.2 g/dL (12-16); LYMPHOCYTES 16.4 % (15-50); MCH 27.9 pg (26.0-34.0); MCHC 32.5 g/dL (31.0-37.0); MEAN PLATELET VOLUME 10.4 fL (7.4-10.4); MONOCYTES 9.9 % (2-11); NEUTROPHILS 70.5 % (40-80); PLATELET COUNT 213 10x3/uL (130-400); RBC 3.65 10x6/uL (4.00-5.40); RDW 13.4 % (11.5-14.5); WBC 7.9 10x3/uL (4.8-10.8)
[2018-05-27 05:50] LABS: INR 1.3 (0.85-1.17); PROTIME 15.8 SECONDS (11.6-15.0)
[2018-05-27 06:07] VITALS: BP 135/68
[2018-05-27 06:23] LABS: ALBUMIN 2.6 g/dL (3.4-5.0); ANION GAP 12.6 mmol/L (8-16); BILIRUBIN - TOTAL 0.36 mg/dL (0.2-1.3); CALCIUM 7.8 mg/dL (8.5-10.1); CARBON DIOXIDE 28.4 mmol/L (21.0-32.0); CREATININE - SERUM 1.2 mg/dL (0.6-1.3); PROTEIN - SERUM 6.1 g/dL (6.4-8.2)
[2018-05-27 11:31] VITALS: BP 126/75
[2018-05-27 16:54] VITALS: BP 111/62
[2018-05-27 20:45] VITALS: BP 114/61
[2018-05-28 01:02] VITALS: BP 137/74
[2018-05-28 04:21] LABS: BASOPHILS 0.1 % (0-2); HEMATOCRIT 32.7 % (36.0-48.0); HEMOGLOBIN 10.7 g/dL (12-16); LYMPHOCYTES 18.7 % (15-50); MCH 28.4 pg (26.0-34.0); MCHC 32.7 g/dL (31.0-37.0); MCV 86.7 fL (80.0-100.0); MEAN PLATELET VOLUME 10.2 fL (7.4-10.4); MONOCYTES 11.5 % (2-11); NEUTROPHILS 67.7 % (40-80); PLATELET COUNT 225 10x3/uL (130-400); RBC 3.77 10x6/uL (4.00-5.40); RDW 13.3 % (11.5-14.5); WBC 7.9 10x3/uL (4.8-10.8)
[2018-05-28 04:30] LABS: INR 1.44 (0.85-1.17); PROTIME 17.1 SECONDS (11.6-15.0)
[2018-05-28 04:42] LABS: ALBUMIN 2.6 g/dL (3.4-5.0); ANION GAP 8.7 mmol/L (8-16); BILIRUBIN - TOTAL 0.42 mg/dL (0.2-1.3); CALCIUM 8.1 mg/dL (8.5-10.1); CARBON DIOXIDE 34.6 mmol/L (21.0-32.0); CREATININE - SERUM 1.5 mg/dL (0.6-1.3); MAGNESIUM - SERUM 1.3 mg/dL (1.8-2.4); PHOSPHOROUS 2.7 mg/dL (2.5-4.9); POTASSIUM - SERUM 3.3 mmol/L (3.5-5.1); PROTEIN - SERUM 6.4 g/dL (6.4-8.2)
[2018-05-28 06:12] VITALS: BP 139/63
[2018-05-28] MEDS ORDERED: LEVAQUIN250 MG PO (07:36)
[2018-05-28] MEDS ORDERED: PLAVIX75 MG PO (07:36)
[2018-05-28] MEDS ORDERED: PROTONIX40 MG PO (07:37)
[2018-05-28] MEDS ORDERED: CARAFATE1 G/10 ML PO (07:38)
[2018-05-28] MEDS ORDERED: FLORASTOR250 MG PO (07:38)
[2018-05-28] MEDS ORDERED: COREG12.5 MG PO (07:39)
[2018-05-28] MEDS ORDERED: COUMADIN7.5 MG PO (07:40)
[2018-05-28 08:21] VITALS: BP 142/67
== END 2018-05-28 10:11 | disposition home or self-care (01) | DRG 242 ==
LOC: D.ER 21:35 → D.EDHOLD 05-20 03:59 → OBSVTIME 05-20 03:59 → D.EDHOLD 05-20 03:59 → D.M2 05-20 07:24 → D.EDHOLD 05-20 07:24 → D.ICU 05-20 07:24 → D.M2 05-22 22:44
PROVIDERS: Emergency Medicine; Family Medicine; Internal Medicine Cardiovascular Disease; Internal Medicine Gastroenterology; Internal Medicine Interventional Cardiology; Thoracic Surgery (Cardiothoracic Vascular Surgery)
PROC: 02H63JZ Insertion of Pacemaker Lead into Right Atrium, Percutaneous Approach (ICD-10-PCS; 2018-05-22)
PROC: 02HK3JZ Insertion of Pacemaker Lead into Right Ventricle, Percutaneous Approach (ICD-10-PCS; 2018-05-22)
PROC: 0JH604Z Insertion of Pacemaker, Single Chamber into Chest Subcutaneous Tissue and Fascia, Open Approach (ICD-10-PCS; principal; 2018-05-22 15:00)
PROC: B2111ZZ Fluoroscopy of Multiple Coronary Arteries using Low Osmolar Contrast (ICD-10-PCS; 2018-05-25)
PROC: B2151ZZ Fluoroscopy of Left Heart using Low Osmolar Contrast (ICD-10-PCS; 2018-05-25)
PROC: 4A023N7 Measurement of Cardiac Sampling and Pressure, Left Heart, Percutaneous Approach (ICD-10-PCS; 2018-05-25)
DX: I48.2 Chronic atrial fibrillation (principal); I21.9 Acute myocardial infarction, unspecified; N17.9 Acute kidney failure, unspecified; N39.0 Urinary tract infection, site not specified; R00.1 Bradycardia, unspecified; T46.0X5A Adverse effect of cardiac-stimulant glycosides and drugs of similar action, initial encounter; T45.515A Adverse effect of anticoagulants, initial encounter; E86.0 Dehydration; K52.9 Noninfective gastroenteritis and colitis, unspecified; E11.9 Type 2 diabetes mellitus without complications; I10 Essential (primary) hypertension; B96.5 Pseudomonas (aeruginosa) (mallei) (pseudomallei) as the cause of diseases classified elsewhere; E87.6 Hypokalemia; E83.51 Hypocalcemia; E83.42 Hypomagnesemia

== ENCOUNTER 2018-06-09 18:06 | Inpatient (IN) | payer MEDICARE ==
[~2018-06-09] VITALS: Ht 162.6 cm; Wt 70.3 kg
[~2018-06-09 18:06] MED LIST changes: +ALPHAGAN P15 ML EACH EYE; +CARAFATE1 G/10 ML PO; +COUMADIN7.5 MG PO; +FLORASTOR250 MG PO; +LEVAQUIN250 MG PO; +PLAVIX75 MG PO; +PROTONIX40 MG PO
[2018-06-09 22:02] LABS: BASOPHILS 0.1 % (0-2); EOSINOPHILS 0.1 % (0-7); HEMATOCRIT 37.5 % (36.0-48.0); HEMOGLOBIN 11.9 g/dL (12-16); IMMATURE GRANULOCYTES 0.7 % (0-5); LYMPHOCYTES 4.1 % (15-50); MCH 28.1 pg (26.0-34.0); MCHC 31.7 g/dL (31.0-37.0); MCV 88.4 fL (80.0-100.0); MEAN PLATELET VOLUME 10.1 fL (7.4-10.4); RBC 4.24 10x6/uL (4.00-5.40); RDW 13.3 % (11.5-14.5); WBC 14.6 10x3/uL (4.8-10.8)
[2018-06-09 22:29] LABS: ALBUMIN 3.2 g/dL (3.4-5.0); ALKALINE PHOSPHATASE 81 U/L (46-116); ALT (SGPT) 12 U/L (10-68); BILIRUBIN - TOTAL 0.44 mg/dL (0.2-1.3); CALC OSMOLALITY 282 mosm/kg (275-300); CALCIUM 8.6 mg/dL (8.5-10.1); CARBON DIOXIDE 28.4 mmol/L (21.0-32.0); CHLORIDE - SERUM 102 mmol/L (98-107); CREATININE - SERUM 1.4 mg/dL (0.6-1.3); PROTEIN - SERUM 7.4 g/dL (6.4-8.2); SODIUM 138 mmol/L (136-145); UREA NITROGEN 18 mg/dL (7-18); eGFR NON AFRICAN AMERICAN 39 mL/min (90-120)
[2018-06-09 22:37] LABS: GLUCOSE 192 mg/dL (74-106)
[2018-06-09 22:44] LABS: C-REACTIVE PROTEIN 4.2 mg/dL (0.0-0.9); CKMB 1.2 U/L (0.0-3.6); CREATINE KINASE 90 UL (21-215); PRO BNP 4676 pg/mL (0-450)
[2018-06-09 22:45] LABS: TROPONIN-I < 0.017 ng/mL (0.000-0.060)
[2018-06-09 22:47] LABS: PLATELET COUNT 302 10x3/uL (130-400)
[2018-06-09 22:52] LABS: APPEARANCE CLEAR (CLEAR); BILIRUBIN NEGATIVE (NEGATIVE); COLOR YELLOW (YELLOW); GLUCOSE 50 mg/dL (NEGATIVE); KETONE SMALL mg/dL (NEGATIVE); NITRITE NEGATIVE (NEGATIVE); PROTEIN TRACE mg/dL (NEGATIVE); SPECIFIC GRAVITY 1.025 (1.005-1.020); UROBILINOGEN NORMAL (NORMAL)
[2018-06-09 23:04] LABS: INR 2.44 (0.85-1.17); PROTIME 25.8 SECONDS (11.6-15.0)
[2018-06-10] VITALS (10 sets, daily range): BP systolic 106–161; BP diastolic 52–75; BMI 26.6
[2018-06-11 04:45] LABS: BASOPHILS 0.2 % (0-2); EOSINOPHILS 0.9 % (0-7); HEMATOCRIT 31.3 % (36.0-48.0); HEMOGLOBIN 9.8 g/dL (12-16); IMMATURE GRANULOCYTES 0.6 % (0-5); LYMPHOCYTES 27.3 % (15-50); MCH 27.6 pg (26.0-34.0); MCHC 31.3 g/dL (31.0-37.0); MCV 88.2 fL (80.0-100.0); MEAN PLATELET VOLUME 9.9 fL (7.4-10.4); MONOCYTES 10.3 % (2-11); NEUTROPHILS 60.7 % (40-80); RBC 3.55 10x6/uL (4.00-5.40); RDW 13.2 % (11.5-14.5)
[2018-06-11 04:48] LABS: PLATELET COUNT 224 10x3/uL (130-400); WBC 6.4 10x3/uL (4.8-10.8)
[2018-06-11 05:01] VITALS: BP 124/63
[2018-06-11 05:12] LABS: ALBUMIN 2.5 g/dL (3.4-5.0); ANION GAP 8.1 mmol/L (8-16); BILIRUBIN - TOTAL 0.33 mg/dL (0.2-1.3); CALCIUM 7.9 mg/dL (8.5-10.1); CARBON DIOXIDE 30.4 mmol/L (21.0-32.0); CREATININE - SERUM 1.3 mg/dL (0.6-1.3); POTASSIUM - SERUM 4.5 mmol/L (3.5-5.1)
[2018-06-11 07:40] LABS: INR 2.61 (0.85-1.17); PROTIME 27.2 SECONDS (11.6-15.0)
[2018-06-11 09:05] VITALS: BP 88/64
[2018-06-11 19:19] VITALS: BP 111/49
[2018-06-11 23:41] VITALS: BP 111/55
[2018-06-12 03:42] VITALS: BP 100/45
[2018-06-12 05:20] LABS: BASOPHILS 0.2 % (0-2); EOSINOPHILS 1.5 % (0-7); HEMATOCRIT 32.3 % (36.0-48.0); HEMOGLOBIN 10.1 g/dL (12-16); IMMATURE GRANULOCYTES 0.8 % (0-5); MCH 27.4 pg (26.0-34.0); MCHC 31.3 g/dL (31.0-37.0); MCV 87.5 fL (80.0-100.0); MEAN PLATELET VOLUME 9.8 fL (7.4-10.4); MONOCYTES 11.5 % (2-11); PLATELET COUNT 225 10x3/uL (130-400); RBC 3.69 10x6/uL (4.00-5.40); RDW 13.1 % (11.5-14.5); WBC 6.5 10x3/uL (4.8-10.8)
[2018-06-12 05:24] LABS: INR 1.66 (0.85-1.17); PROTIME 19.1 SECONDS (11.6-15.0)
[2018-06-12 05:33] LABS: ALBUMIN 2.6 g/dL (3.4-5.0); ANION GAP 12.9 mmol/L (8-16); BILIRUBIN - TOTAL 0.36 mg/dL (0.2-1.3); CALCIUM 8.2 mg/dL (8.5-10.1); CARBON DIOXIDE 25.3 mmol/L (21.0-32.0); CREATININE - SERUM 1.2 mg/dL (0.6-1.3); POTASSIUM - SERUM 4.2 mmol/L (3.5-5.1); PROTEIN - SERUM 6.4 g/dL (6.4-8.2)
[2018-06-12 08:43] VITALS: BP 113/54
[2018-06-12 11:48] VITALS: BP 108/60
[2018-06-12 23:15] VITALS: BP 154/94
[2018-06-12 23:30] VITALS: BP 148/75
[2018-06-12 23:45] VITALS: BP 148/74
[2018-06-13] VITALS (11 sets, daily range): BP systolic 111–162; BP diastolic 47–82; Ht 162.6 cm; Wt 70.3 kg
[2018-06-13 04:22] LABS: BASOPHILS 0.1 % (0-2); EOSINOPHILS 0.4 % (0-7); HEMATOCRIT 31.9 % (36.0-48.0); HEMOGLOBIN 10.3 g/dL (12-16); IMMATURE GRANULOCYTES 0.6 % (0-5); LYMPHOCYTES 9.4 % (15-50); MCHC 32.3 g/dL (31.0-37.0); MCV 86.7 fL (80.0-100.0); MEAN PLATELET VOLUME 9.9 fL (7.4-10.4); MONOCYTES 8.4 % (2-11); NEUTROPHILS 81.1 % (40-80); PLATELET COUNT 216 10x3/uL (130-400); RBC 3.68 10x6/uL (4.00-5.40); RDW 12.8 % (11.5-14.5); WBC 9.9 10x3/uL (4.8-10.8)
[2018-06-13 05:07] LABS: ALBUMIN 2.9 g/dL (3.4-5.0); ANION GAP 14.8 mmol/L (8-16); BILIRUBIN - TOTAL 0.42 mg/dL (0.2-1.3); CALCIUM 7.7 mg/dL (8.5-10.1); CARBON DIOXIDE 23.8 mmol/L (21.0-32.0); CREATININE - SERUM 1.2 mg/dL (0.6-1.3); POTASSIUM - SERUM 4.6 mmol/L (3.5-5.1); PROTEIN - SERUM 6.1 g/dL (6.4-8.2)
[2018-06-14 04:50] VITALS: BP 96/34
[2018-06-14 07:40] LABS: BASOPHILS 0.1 % (0-2); EOSINOPHILS 0.6 % (0-7); HEMATOCRIT 28.1 % (36.0-48.0); MCH 27.8 pg (26.0-34.0); MCV 86.7 fL (80.0-100.0); MEAN PLATELET VOLUME 9.7 fL (7.4-10.4); MONOCYTES 12.2 % (2-11); NEUTROPHILS 71.1 % (40-80); PLATELET COUNT 191 10x3/uL (130-400); RBC 3.24 10x6/uL (4.00-5.40); RDW 12.9 % (11.5-14.5); WBC 7.9 10x3/uL (4.8-10.8)
[2018-06-14 08:03] LABS: ALBUMIN 2.3 g/dL (3.4-5.0); ANION GAP 10.8 mmol/L (8-16); BILIRUBIN - TOTAL 0.51 mg/dL (0.2-1.3); CALCIUM 7.9 mg/dL (8.5-10.1); CARBON DIOXIDE 26.9 mmol/L (21.0-32.0); CREATININE - SERUM 1.9 mg/dL (0.6-1.3); POTASSIUM - SERUM 4.7 mmol/L (3.5-5.1)
[2018-06-14 09:27] VITALS: BP 102/46
[2018-06-14 14:07] VITALS: BP 104/47
[2018-06-14 17:00] VITALS: BP 100/52
[2018-06-14 22:37] VITALS: BP 94/51
[2018-06-15 04:06] VITALS: BP 101/54
[2018-06-15 06:20] LABS: BASOPHILS 0.2 % (0-2); EOSINOPHILS 1.5 % (0-7); HEMATOCRIT 25.9 % (36.0-48.0); HEMOGLOBIN 8.2 g/dL (12-16); IMMATURE GRANULOCYTES 1.8 % (0-5); LYMPHOCYTES 17.5 % (15-50); MCH 27.2 pg (26.0-34.0); MCHC 31.7 g/dL (31.0-37.0); MCV 85.8 fL (80.0-100.0); MONOCYTES 12.3 % (2-11); NEUTROPHILS 66.7 % (40-80); PLATELET COUNT 196 10x3/uL (130-400); RBC 3.02 10x6/uL (4.00-5.40); WBC 6.2 10x3/uL (4.8-10.8)
[2018-06-15 06:45] LABS: ALBUMIN 2.2 g/dL (3.4-5.0); ANION GAP 9.6 mmol/L (8-16); BILIRUBIN - TOTAL 0.41 mg/dL (0.2-1.3); CALCIUM 7.7 mg/dL (8.5-10.1); CARBON DIOXIDE 26.5 mmol/L (21.0-32.0); CREATININE - SERUM 1.8 mg/dL (0.6-1.3); POTASSIUM - SERUM 4.1 mmol/L (3.5-5.1); PROTEIN - SERUM 5.8 g/dL (6.4-8.2)
[2018-06-15 08:25] VITALS: BP 95/49
[2018-06-15 11:37] VITALS: BP 97/52
[2018-06-15 16:05] VITALS: BP 94/49
[2018-06-15 22:41] VITALS: BP 104/54
[2018-06-16 03:58] VITALS: BP 121/55
[2018-06-16 05:50] LABS: BASOPHILS 0.1 % (0-2); EOSINOPHILS 1.4 % (0-7); HEMATOCRIT 27.1 % (36.0-48.0); HEMOGLOBIN 8.6 g/dL (12-16); IMMATURE GRANULOCYTES 1.3 % (0-5); LYMPHOCYTES 16.1 % (15-50); MCH 27.4 pg (26.0-34.0); MCHC 31.7 g/dL (31.0-37.0); MCV 86.3 fL (80.0-100.0); MEAN PLATELET VOLUME 9.5 fL (7.4-10.4); NEUTROPHILS 71.1 % (40-80); PLATELET COUNT 229 10x3/uL (130-400); RBC 3.14 10x6/uL (4.00-5.40); RDW 13.2 % (11.5-14.5); WBC 7.1 10x3/uL (4.8-10.8)
[2018-06-16 06:08] LABS: ALBUMIN 2.4 g/dL (3.4-5.0); ANION GAP 8.1 mmol/L (8-16); BILIRUBIN - TOTAL 0.47 mg/dL (0.2-1.3); CALCIUM 8.3 mg/dL (8.5-10.1); CARBON DIOXIDE 27.5 mmol/L (21.0-32.0); CREATININE - SERUM 1.3 mg/dL (0.6-1.3); POTASSIUM - SERUM 4.6 mmol/L (3.5-5.1); PROTEIN - SERUM 6.1 g/dL (6.4-8.2)
[2018-06-16 08:12] VITALS: BP 104/62
[2018-06-16] MEDS ORDERED: NORCO 7.5/325 T1 TA1 PO (12:18)
[2018-06-16 15:44] LABS: INR 1.07 (0.85-1.17); PROTIME 13.5 SECONDS (11.6-15.0)
[2018-06-16] MEDS ORDERED: LOVENOX40 MG/0.4 SC (16:43)
== END 2018-06-16 21:54 | disposition home health service (06) | DRG 493 ==
LOC: D.ER 18:06 → D.ICU 06-10 00:47 → D.MS 06-10 00:47 → D.EDHOLD 06-10 00:47 → D.MS 06-10 08:02 → D.ICU 06-12 22:44 → D.MS 06-13 15:04
PROVIDERS: Family Medicine; Orthopaedic Surgery
PROC: 0PSC04Z Reposition Right Humeral Head with Internal Fixation Device, Open Approach (ICD-10-PCS; principal; 2018-06-12 15:00)
DX: S42.211A Unspecified displaced fracture of surgical neck of right humerus, initial encounter for closed fracture (principal); I42.9 Cardiomyopathy, unspecified; N17.9 Acute kidney failure, unspecified; D62 Acute posthemorrhagic anemia; W01.0XXA Fall on same level from slipping, tripping and stumbling without subsequent striking against object, initial encounter; I10 Essential (primary) hypertension; I48.2 Chronic atrial fibrillation; E11.9 Type 2 diabetes mellitus without complications; Z79.84 Long term (current) use of oral hypoglycemic drugs; Z95.0 Presence of cardiac pacemaker; I34.0 Nonrheumatic mitral (valve) insufficiency; K21.9 Gastro-esophageal reflux disease without esophagitis; D64.9 Anemia, unspecified; Z79.01 Long term (current) use of anticoagulants

== ENCOUNTER → 2018-06-19 16:32 | Outpatient (CLI) | payer MEDICARE ==
[2018-06-13 10:21] VITALS: BMI 26.6
[~2018-06-19 16:32] MED LIST changes: +LOVENOX40 MG/0.4 SC; +MACROBID100 MG PO; +NORCO 7.5/325 T1 TA1 PO
[2018-06-19 16:59] LABS: INR 1.46 (0.85-1.17); PROTIME 17.2 SECONDS (11.6-15.0)
== END | disposition home or self-care (01) ==
LOC: D.LABREF 16:32
PROVIDERS: Family Medicine
DX: Z51.81 Encounter for therapeutic drug level monitoring (principal); Z79.01 Long term (current) use of anticoagulants

== ENCOUNTER 2018-07-07 12:46 | Emergency (ER) | payer MEDICARE ==
[~2018-07-07] VITALS: Ht 162.6 cm; Wt 73.2 kg
[~2018-07-07 12:46] MED LIST changes: -MACROBID100 MG PO
[2018-07-07 13:00] VITALS: Ht 162.6 cm; Wt 73.2 kg
[2018-07-07 14:04] LABS: BASOPHILS 0.1 % (0-2); EOSINOPHILS 0.2 % (0-7); HEMATOCRIT 33.4 % (36.0-48.0); HEMOGLOBIN 10.6 g/dL (12-16); IMMATURE GRANULOCYTES 0.6 % (0-5); LYMPHOCYTES 11.3 % (15-50); MCH 27.1 pg (26.0-34.0); MCHC 31.7 g/dL (31.0-37.0); MCV 85.4 fL (80.0-100.0); MEAN PLATELET VOLUME 9.5 fL (7.4-10.4); MONOCYTES 6.5 % (2-11); NEUTROPHILS 81.3 % (40-80); PLATELET COUNT 252 10x3/uL (130-400); RBC 3.91 10x6/uL (4.00-5.40); RDW 12.9 % (11.5-14.5)
[2018-07-07 14:20] LABS: ALBUMIN 3.4 g/dL (3.4-5.0); BILIRUBIN - TOTAL 0.34 mg/dL (0.2-1.3); CALCIUM 8.8 mg/dL (8.5-10.1); CARBON DIOXIDE 31.4 mmol/L (21.0-32.0); CREATININE - SERUM 1.5 mg/dL (0.6-1.3); POTASSIUM - SERUM 4.4 mmol/L (3.5-5.1); PROTEIN - SERUM 7.5 g/dL (6.4-8.2)
[2018-07-07 15:15] LABS: APPEARANCE HAZY (CLEAR); BILIRUBIN NEGATIVE (NEGATIVE); COLOR YELLOW (YELLOW); GLUCOSE NEGATIVE (NEGATIVE); KETONE NEGATIVE (NEGATIVE); NITRITE NEGATIVE (NEGATIVE); PROTEIN NEGATIVE (NEGATIVE); SPECIFIC GRAVITY 1.015 (1.005-1.020); UROBILINOGEN NORMAL (NORMAL)
[2018-07-07 15:16] LABS: BACTERIA MODERATE /hpf (NONE SEEN); EPITHELIAL CELLS 0-5 /hpf (0-5); RED CELLS - URINE 0-5 /hpf (0-5)
[2018-07-07 16:13] LABS: APTT 40.3 SECONDS (22.8-39.4); INR 2.79 (0.85-1.17); PROTIME 28.7 SECONDS (11.6-15.0)
[2018-07-07] MEDS ORDERED: MACROBID100 MG PO (18:38)
[2018-07-07 19:06] VITALS: BP 127/63
[2018-07-07 21:08] LABS: BASOPHILS 0.1 % (0-2); EOSINOPHILS 0.2 % (0-7); HEMATOCRIT 34.8 % (36.0-48.0); HEMOGLOBIN 10.8 g/dL (12-16); IMMATURE GRANULOCYTES 0.4 % (0-5); LYMPHOCYTES 10.1 % (15-50); MCH 27.3 pg (26.0-34.0); MCV 87.9 fL (80.0-100.0); MEAN PLATELET VOLUME 10.1 fL (7.4-10.4); MONOCYTES 5.8 % (2-11); NEUTROPHILS 83.4 % (40-80); PLATELET COUNT 253 10x3/uL (130-400); RBC 3.96 10x6/uL (4.00-5.40); RDW 12.9 % (11.5-14.5); WBC 9.8 10x3/uL (4.8-10.8)
== END 2018-07-07 19:04 | disposition home or self-care (01) ==
LOC: D.ER 12:46
PROVIDERS: Family Medicine
DX: N39.0 Urinary tract infection, site not specified (principal); R11.2 Nausea with vomiting, unspecified; E11.9 Type 2 diabetes mellitus without complications; I10 Essential (primary) hypertension; Z95.0 Presence of cardiac pacemaker; K21.9 Gastro-esophageal reflux disease without esophagitis

== ENCOUNTER → 2018-07-10 17:52 | Outpatient (CLI) | payer MEDICARE ==
[2018-07-07 13:00] VITALS: BMI 27.7
[~2018-07-10 17:52] MED LIST changes: +MACROBID100 MG PO
== END | disposition home or self-care (01) ==
LOC: D.LABREF 17:52
DX: Z51.81 Encounter for therapeutic drug level monitoring (principal); Z79.899 Other long term (current) drug therapy

== ENCOUNTER → 2018-07-23 08:26 | Outpatient (CLI) | payer MEDICARE ==
[2018-07-07 13:00] VITALS: BMI 27.7
== END | disposition home or self-care (01) ==
LOC: D.RAD 08:26
DX: R13.10 Dysphagia, unspecified (principal); R12 Heartburn; R10.13 Epigastric pain; R63.4 Abnormal weight loss

== ENCOUNTER → 2018-07-29 17:14 | Outpatient (CLI) | payer MEDICARE ==
[2018-07-07 13:00] VITALS: BMI 27.7
[2018-07-29 18:28] LABS: INR 2.1 (0.85-1.17); PROTIME 22.9 SECONDS (11.6-15.0)
== END | disposition home or self-care (01) ==
LOC: D.LABREF 17:14
PROVIDERS: Orthopaedic Surgery
DX: S42.301D Unspecified fracture of shaft of humerus, right arm, subsequent encounter for fracture with routine healing (principal); Z51.81 Encounter for therapeutic drug level monitoring; Z79.01 Long term (current) use of anticoagulants

== ENCOUNTER 2018-07-31 10:02 | Day surgery (SDC) | payer MEDICARE ==
[~2018-07-31] VITALS: Ht 162.6 cm; Wt 70.0 kg
--- NOTE | ~2018-07-31 | OP ---
PATIENT NAME: PAPO MAHMOOD MEDICAL RECORD: [id number] :40 LOCATION:[facility] ADMISSION DATE: SURGEON: LUCINDA CARUSO MD DATE OF OPERATION: 07/31/2018 PROCEDURE: EGD with biopsy. REFERRING PHYSICIAN: Dr. Michael Eldridge. INDICATIONS: Ms. Mahmood is a delightful 78-year-old woman with a history of cardiac arrhythmia on Coumadin therapy, who has had symptoms of recurrent heartburn, dysphagia, and epigastric discomfort. She last had an EGD in March 2018 with findings showing a small hiatal hernia, esophageal ring (dilated to 60 Dutch, irregular margins at the GE junction, erosive gastritis, and gastric polyps). She presents secondary to recurrent dysphagia. She presents for outpatient EGD. PREMEDICATIONS: Total of IV anesthesia (propofol 120 mg, ASA 3, history of cardiac arrhythmia). INSTRUMENT: Olympus video gastroscope. PROCEDURE AND FINDINGS: After receiving informed consent, Ms. Mahmood's posterior pharynx was anesthetized with Cetacaine spray. She was placed in the left lateral decubitus position and sedated as per anesthesia. After achieving an adequate level of sedation, gastroscope was introduced per orally and advanced to the duodenum without difficulty. At the GE junction was a partial wide open nonobstructing Schatzki's ring and a slight irregularity of the Z line. Multiple biopsy "bites" were taken to break up the esophageal ring. Small hiatal hernia was noted. Gastric mucosa was notable for mild patchy prepyloric and antral erythema with multiple prepyloric and antral erosions (3-4), nonhemorrhagic. No lesions were seen in the cardia, fundus, or in the body of the stomach. Pylorus was patent and competent. Duodenal mucosa was without erythema or ulcers, appeared normal through the second portion. Gastroscope was then withdrawn. Ms. Mahmood tolerated the procedure well, no immediate complications. ASSESSMENT: 1. Partial nonobstructing Schatzki's ring wide open that was "broken up" with biopsy forceps. 2. Mild esophagitis (irregular Z line). 3. Small hiatal hernia. 4. Mild erosive gastritis. RECOMMENDATIONS: 1. Follow up histopathology. 2. Avoid nonsteroidal anti-inflammatory drugs. 3. Continue Protonix 40 mg p.o. b.i.d. 4. Resume Coumadin/warfarin tomorrow (her INR is 2.08 today). 5. If dysphagia persists, recommend barium swallow, possible video fluoroscopic swallowing study. TRANSINT:[id number] Voice Confirmation ID: [id number] DOCUMENT ID: [id number] OPERATIVE REPORT [id number] PAPO MAHMOOD TERRI MD at 1726 CC: MICHAEL ELDRIDGE DO [id number] DICTATION DATE: 07/31/18 1242 SIDE SHOW ENTERTAINER: 07/31/18 1252 [facility] 07/31/18 [facility] [address] [place] [address]
[2018-07-31 10:33] LABS: BASOPHILS 0.2 % (0-2); EOSINOPHILS 0.5 % (0-7); HEMATOCRIT 33.3 % (36.0-48.0); HEMOGLOBIN 10.6 g/dL (12-16); IMMATURE GRANULOCYTES 0.2 % (0-5); LYMPHOCYTES 20.8 % (15-50); MCH 26.6 pg (26.0-34.0); MCHC 31.8 g/dL (31.0-37.0); MCV 83.5 fL (80.0-100.0); MEAN PLATELET VOLUME 9.5 fL (7.4-10.4); NEUTROPHILS 70.3 % (40-80); PLATELET COUNT 209 10x3/uL (130-400); RBC 3.99 10x6/uL (4.00-5.40); RDW 13.8 % (11.5-14.5); WBC 5.8 10x3/uL (4.8-10.8)
[2018-07-31 10:45] LABS: APTT 31.9 SECONDS (22.8-39.4); CALCIUM 8.5 mg/dL (8.5-10.1); CARBON DIOXIDE 24.7 mmol/L (21.0-32.0); CREATININE - SERUM 1.2 mg/dL (0.6-1.3); INR 2.08 (0.85-1.17); POTASSIUM - SERUM 3.7 mmol/L (3.5-5.1); PROTIME 22.8 SECONDS (11.6-15.0)
[2018-07-31 11:13] VITALS: BP 160/90; Ht 162.6 cm; Wt 70.0 kg
== END 2018-07-31 13:25 | disposition home or self-care (01) ==
LOC: D.OPS 10:02
PROVIDERS: Anesthesiology
DX: K22.2 Esophageal obstruction (principal); K20.9 Esophagitis, unspecified; K44.9 Diaphragmatic hernia without obstruction or gangrene; K29.00 Acute gastritis without bleeding; Z01.812 Encounter for preprocedural laboratory examination

== ENCOUNTER → 2018-08-19 13:11 | Outpatient (CLI) | payer MEDICARE ==
[2018-07-31 11:13] VITALS: BMI 26.5
[2018-08-19 13:54] LABS: INR 2.24 (0.85-1.17); PROTIME 24.2 SECONDS (11.6-15.0)
== END | disposition home or self-care (01) ==
LOC: D.LABREF 13:11
PROVIDERS: Family Medicine
DX: I48.91 Unspecified atrial fibrillation (principal)

== ENCOUNTER → 2018-09-24 12:16 | Outpatient (CLI) | payer MEDICARE ==
[2018-07-31 11:13] VITALS: BMI 26.5
[2018-09-24 13:23] LABS: INR 1.64 (0.85-1.17); PROTIME 18.9 SECONDS (11.6-15.0)
== END | disposition home or self-care (01) ==
LOC: D.LABREF 12:16
PROVIDERS: Family Medicine
DX: I48.91 Unspecified atrial fibrillation (principal)

== ENCOUNTER → 2018-10-28 09:34 | Outpatient (CLI) | payer MEDICARE ==
[2018-07-31 11:13] VITALS: BMI 26.5
== END | disposition home or self-care (01) ==
LOC: D.CT 09:30
DX: R91.1 Solitary pulmonary nodule (principal)

== ENCOUNTER 2019-12-02 11:12 | Inpatient (IN) | payer OTHER ==
[~2019-12-02] VITALS: Ht 162.6 cm; Wt 80.9 kg
--- NOTE | ~2019-12-02 | EC ---
PATIENT:PAPO MAHMOOD DATE OF SERVICE: 12/02/19 SEX: F MEDICAL RECORD: [id number] DATE OF : 40 LOCATION:D.M2 D.213 AGE OF PATIENT: 79 ADMISSION DATE: 12/02/19 REFERRING PHYSICIAN: INTERPRETING PHYSICIAN: EMILY YI MD ECHOCARDIOGRAM REPORT ECHO CHARGES 4 ECHO COMPLETE Date: 12/03/19 CLINICAL DIAGNOSIS: PRE SYNCOPE HX PACEMAKER/HTN DM ECHOCARDIOGRAPHIC MEASUREMENTS (adult normal given) AC root (d.<3.7cm) 3.1 cm LV Septum d (<1.2 cm> 1.4 cm Valve Excursion 1.4 cm LV Septum (systole) 1.7 cm Left Atria (s.<4.0cm> 4.2 cm LVPW d(<1.2cm) 1.3 cm RV (d.<2.3cm) 3.7 cm LVPW (sytole) 1.8 cm LV diastole(<5.6CM) 5.2 cm MV E-F(>70mm/sec) cm LV systole 4.1 cm LVOT Diameter 1.8 cm MV exc.(>10mm) 2.2 cm Est.ejection fraction (50-75%) % DOPPLER: LVIT cm/sec A 31.0 cm/sec E 146.0 cm/sec LA cm/sec RVSP 27 mmHg LVOT 98 cm/sec AOP1/2T m/s Asc. Ao 171 cm/sec RVOT 69 cm/sec RA cm/sec PA 110 cm/sec AV Gradient Peak 11.65mmHg AV Mean 6.96 mmHg AV Area 1.5 cm MV Gradient Peak 16.47mmHg MV Mean 3.85 mmHg MV Area cm COMMENTS: Client Executive: 2 SANDEEP OSHEA Presser Automatic: 1 Dr. Yi TAPE# PACS Pericardial Effusion N DATE OF SERVICE: FINDINGS: 1. Left ventricular chamber size is within normal limits. Left ventricular systolic function is normal at 55% to 60%. 2. Left atrium is enlarged at 4.2 cm. Right atrium and right ventricular chamber sizes are within normal limits. 3. Valvular structures: Aortic valve demonstrates aortic sclerosis, but no significant aortic stenosis. The remaining valvular structures have normal structure and motion. ECHOCARDIOGRAM REPORT [id number] PAPO MAHMOOD 4. Doppler interrogation reveals mild mitral regurgitation, mild tricuspid regurgitation, no other valvular insufficiency or stenosis. Pulmonary systolic pressure estimated at 27 mmHg. 5. No evidence of pericardial effusion or left ventricular thrombus. TRANSINT:[id number] Voice Confirmation ID: [id number] DOCUMENT ID: [id number] EMILY YI MD CC: [id number] DICTATION DATE: 12/03/191625 MATERIAL MANAGER: 12/04/19 0156 ADM IN [facility] [address] [place] [address]
[2019-12-02 11:49] LABS: BASOPHILS 0.2 % (0-2); EOSINOPHILS 0.5 % (0-7); HEMATOCRIT 37.6 % (36.0-48.0); HEMOGLOBIN 11.9 g/dL (12-16); IMMATURE GRANULOCYTES 0.3 % (0-5); LYMPHOCYTES 8.9 % (15-50); MCH 27.2 pg (26.0-34.0); MCHC 31.6 g/dL (31.0-37.0); MEAN PLATELET VOLUME 9.6 fL (7.4-10.4); MONOCYTES 7.4 % (2-11); NEUTROPHILS 82.7 % (40-80); PLATELET COUNT 222 10x3/uL (130-400); RBC 4.37 10x6/uL (4.00-5.40); RDW 14.3 % (11.5-14.5); WBC 12.6 10x3/uL (4.8-10.8)
[2019-12-02 11:53] LABS: CALC OSMOLALITY 288 mosm/kg (275-300); CALCIUM 8.8 mg/dL (8.5-10.1); CARBON DIOXIDE 22.6 mmol/L (21.0-32.0); CHLORIDE - SERUM 101 mmol/L (98-107); CREATININE - SERUM 3.7 mg/dL (0.6-1.3); GLUCOSE 105 mg/dL (74-106); POTASSIUM - SERUM 4.2 mmol/L (3.5-5.1); SODIUM 137 mmol/L (136-145); UREA NITROGEN 55 mg/dL (7-18); eGFR NON AFRICAN AMERICAN 12 mL/min (90-120)
[2019-12-02 12:04] LABS: APTT 33.5 SECONDS (22.8-39.4); INR 1.69 (0.85-1.17); PROTIME 19.7 SECONDS (11.6-15.0)
[2019-12-02 12:07] LABS: ALBUMIN 3.4 g/dL (3.4-5.0); ALKALINE PHOSPHATASE 102 U/L (46-116); ALT (SGPT) 12 U/L (10-68); BILIRUBIN - TOTAL 0.37 mg/dL (0.2-1.3); CKMB 0.9 U/L (0.0-3.6); CREATINE KINASE 57 UL (21-215); MAGNESIUM - SERUM 2.3 mg/dL (1.8-2.4); PROTEIN - SERUM 7.8 g/dL (6.4-8.2); THYROID STIMULATING HORMONE 3.75 uIU/mL (0.36-3.74); TROPONIN-I < 0.017 ng/mL (0.000-0.060)
[2019-12-02 13:18] VITALS: BP 106/33
[2019-12-02 13:43] LABS: APPEARANCE HAZY (CLEAR); BILIRUBIN NEGATIVE (NEGATIVE); COLOR YELLOW (YELLOW); GLUCOSE NEGATIVE (NEGATIVE); KETONE NEGATIVE (NEGATIVE); NITRITE NEGATIVE (NEGATIVE); PROTEIN TRACE mg/dL (NEGATIVE); SPECIFIC GRAVITY 1.015 (1.005-1.020); UROBILINOGEN NORMAL (NORMAL)
[2019-12-02 13:44] LABS: BACTERIA FEW /hpf (NEGATIVE); EPITHELIAL CELLS OCC /hpf (0-5); RED CELLS - URINE NONE SEEN /hpf (0-5); WHITE CELLS - URINE OCC /hpf (NEGATIVE)
--- NOTE | 2019-12-02 15:10 | NUR ---
PT ARRIVED TO FLOOR VIA WC. PT WAS A SELF TRANSFER INTO BED. PT IS ALERT AND ORIENTED AND ON ROOM AIR. PT STATES SHE HAS NO FURTHER NEEDS AT THIS TIME. DAUGHTER AT BEDSIDE. BED LOW. CL IN REACH. WILL CONTINUE TO MONITOR.
[2019-12-02] MEDS ORDERED: COREG12.5 MG PO (15:21)
[2019-12-02] MEDS ORDERED: LASIX20 MG PO (15:24)
[2019-12-02] MEDS ORDERED: CARAFATE1 G PO (15:24)
--- NOTE | 2019-12-02 15:29 | MORECARE ---
CASE MANAGEMENT DISCHARGE SUMMARY PATIENT: PAPO MAHMOOD UNIT: [id number] ADM DATE: 12/02/19 AGE: 79 : 40 SEX: F ROOM/BED: D.1167 AUTHOR: ALBERTINA,DOC PHYSICIAN: REFERRING PHYSICIAN: JASBIR RODAS MD DATE OF SERVICE: 12/02/19 Discharge Plan Patient Name: PAPO MAHMOOD Facility: [facility]:[place] : 1940 Planned Disposition: Anticipated Discharge Date: Discharge Date: Expected LOS: Initial Reviewer: [email or web address] Initial Review Date: 12/02/2019 Generated: 12/02/19 4:28 pm DCP- Discharge Planning Updated by [email or web address]: Nichelle Stapleton on 12/02/19 2:[address] CM met with patient to discuss initial discharge planning. Patient is in agreement to proceed with assessment with Rachell Nunez (dtr) present. Verified patient's address and telephone number. Patient is alert/oriented. Stairs/steps: Ramp, no rails. PCP: Dr. Parth Up. Pharmacy: [facility]. Patient states they have been able to obtain all of their prescribed medications. Patient lives with in her home, grandson stays with her at times. HHS: No. DME: No. Patient gives permission to speak with family members. Emergency contact: Rachell Nunez (dtr) [phone]. Patient is Independent with all ADL's, medication management. CM discussed the availability of HH, Rehab, DME services. Patient denies the need for additional services at this time and feels safe returning to previous environment. Patient denies being hospitalized within the past 30 days. Patient denies the use of community resources NETWORK CONTROLLER. Transportation at time of discharge: Rachell Nunez (dtr). DCPIA - Discharge Planning Initial Assessment Updated by [email or web address]: Nichelle Stapleton on 12/02/19 3:23 pm * Is the patient Alert and Oriented? Yes * How many steps to enter\exit or inside your home? Ramp * PCP Dr. Parth Up * Pharmacy [facility] * Preadmission Environment Home with Family * ADLs Independent * Equipment None * Other Equipment NA * List name and contact numbers for known caregivers / representatives who currently or will assist patient after discharge: Rachell Nunez (dtr) [phone] * Verbal permission to speak to the caregivers and representatives has been obtained from the patient. Yes * Community resources currently utilized None * Please name any agencies selected above. NA * Additional services required to return to the preadmission environment? No * Can the patient safely return to the preadmission environment? Yes * Has this patient been hospitalized within the prior 30 days at any hospital? No Patient Name: PAPO MAHMOOD Page 45397 at 1529 All edits/amendments must be made on the electronic document DICTATION DATE: 12/02/191527 LICENSED REACTOR OPERATOR: JAMAAL 12/02/191527 RPT#: [id number] DC DATE: STATUS: ADM IN [facility] [address] [place] [address] END OF REPORT
[2019-12-02 15:47] VITALS: BP 115/55; BMI 29.2
[2019-12-02 20:56] VITALS: BP 130/52
[2019-12-03 00:30] VITALS: BP 131/56
[2019-12-03 04:30] VITALS: BP 103/47
[2019-12-03 05:32] LABS: BASOPHILS 0.1 % (0-2); EOSINOPHILS 0.7 % (0-7); HEMATOCRIT 33.3 % (36.0-48.0); HEMOGLOBIN 10.6 g/dL (12-16); IMMATURE GRANULOCYTES 0.7 % (0-5); LYMPHOCYTES 13.4 % (15-50); MCH 26.8 pg (26.0-34.0); MCHC 31.8 g/dL (31.0-37.0); MCV 84.3 fL (80.0-100.0); MEAN PLATELET VOLUME 9.7 fL (7.4-10.4); MONOCYTES 9.7 % (2-11); NEUTROPHILS 75.4 % (40-80); PLATELET COUNT 219 10x3/uL (130-400); RBC 3.95 10x6/uL (4.00-5.40); RDW 14.3 % (11.5-14.5)
[2019-12-03 05:55] LABS: ANION GAP 16.2 mmol/L (8-16); CALCIUM 7.9 mg/dL (8.5-10.1); CARBON DIOXIDE 20.4 mmol/L (21.0-32.0); CREATININE - SERUM 3.2 mg/dL (0.6-1.3); MAGNESIUM - SERUM 2.1 mg/dL (1.8-2.4); PHOSPHOROUS 5.1 mg/dL (2.5-4.9); POTASSIUM - SERUM 3.6 mmol/L (3.5-5.1)
[2019-12-03 06:01] LABS: WBC 6.9 10x3/uL (4.8-10.8)
--- NOTE | 2019-12-03 06:23 | NUR ---
I have reviewed this patient and I concur with the Shift Assessment completed by the Licensed Practical Nurse today this shift.
--- NOTE | 2019-12-03 07:57 | NUR ---
PATIENT IS RESTING QUIETLY IN HER BED ON HER BACK AT THIS TIME. LIGHTS LOW. SHE IS ALERT AND AWAKE, DENIES ANY NEEDS AT THIS TIME.
[2019-12-03 10:55] VITALS: BP 118/43
[2019-12-03 14:09] VITALS: BP 127/49
--- NOTE | 2019-12-03 14:41 | NUR ---
PATIENT WROTE DOWN ON A [place] THE MEDICATIONS THAT SHE IS ON TO SHARE WITH DR RUSS. ESTRIOL, VAGANIL- 1% CREAM AND MITROFURANTOIL-MONOHYD- MAC_100.
--- NOTE | 2019-12-03 16:46 | NUR ---
ORTHOSTATIC B/P: LAYING-121/53 SITTING-124/47 STANDING-126/53
[2019-12-03 17:24] VITALS: BP 111/46
[2019-12-03 20:00] VITALS: BP 105/49
[2019-12-04] VITALS: BP 104/42
[2019-12-04 04:00] VITALS: BP 110/51
--- NOTE | 2019-12-04 05:10 | NUR ---
I have reviewed this patient and I concur with the Shift Assessment completed by the Licensed Practical Nurse today this shift.
[2019-12-04 07:00] LABS: BASOPHILS 0.2 % (0-2); EOSINOPHILS 1.8 % (0-7); HEMATOCRIT 30.9 % (36.0-48.0); HEMOGLOBIN 9.8 g/dL (12-16); LYMPHOCYTES 34.9 % (15-50); MCH 26.7 pg (26.0-34.0); MCHC 31.7 g/dL (31.0-37.0); MCV 84.2 fL (80.0-100.0); MEAN PLATELET VOLUME 9.4 fL (7.4-10.4); MONOCYTES 12.7 % (2-11); NEUTROPHILS 49.4 % (40-80); PLATELET COUNT 210 10x3/uL (130-400); RBC 3.67 10x6/uL (4.00-5.40); RDW 14.4 % (11.5-14.5)
[2019-12-04 07:19] LABS: ALBUMIN 2.7 g/dL (3.4-5.0); BILIRUBIN - DIRECT 0.06 mg/dL (0.00-0.30); BILIRUBIN - INDIRECT 0.13 mg/dL (0.00-1.00); BILIRUBIN - TOTAL 0.19 mg/dL (0.2-1.3); CALCIUM 7.9 mg/dL (8.5-10.1); CARBON DIOXIDE 22.5 mmol/L (21.0-32.0); CREATININE - SERUM 2.6 mg/dL (0.6-1.3); PROTEIN - SERUM 5.9 g/dL (6.4-8.2)
[2019-12-04 07:21] LABS: ANION GAP 12.8 mmol/L (8-16); POTASSIUM - SERUM 4.3 mmol/L (3.5-5.1)
--- NOTE | 2019-12-04 07:44 | NUR ---
PATIENT IS RESTING QUIETLY AT THIS TIME. DENIES ANY NEEDS AT THIS TIME.
--- NOTE | 2019-12-04 08:49 | CN ---
PATIENT NAME:PAPO MAHMOOD MEDICAL RECORD: [id number] : 40 LOCATION:D. D.2137 ADMIT DATE: 12/02/19 ACCOUNT: [id number] CONSULTING PHYSICIAN: JASBIR LEONARD MD REFERRING PHYSICIAN: JASBIR RODAS MD DATE OF CONSULTATION: 12/03/2019 HISTORY OF PRESENT ILLNESS: A 79-year-old female with history of atrial fibrillation, chronic in nature, on Coumadin for cerebrovascular accident prophylaxis, hypertension, as well as diabetes mellitus with syncope, has a history of vertigo and has had several near syncopal episode. She did recently have her digoxin stopped. She was through with therapy and had near-syncope. No prodrome. We are asked to see her concerning her cardiovascular status. PAST MEDICAL HISTORY: Includes; 1. History of hypertension. 2. Hyperlipidemia. 3. Diabetes mellitus. 4. Sick sinus syndrome, status post pacemaker placement. 5. Chronic renal insufficiency, baseline creatinine appears around 3-3.2. ALLERGIES: None known. MEDICATIONS: Typically include carvedilol 12.5 b.i.d., warfarin per scale, Lisinopril 10 mg p.o. every day, Lasix 20 mg p.o. day, Protonix 40 every day and Amaryl 1 mg p.o. b.i.d. SOCIAL HISTORY: Nonsmoker, nondrinker. Takes care of all her ADLs, is doing therapy, currently. REVIEW OF SYSTEMS: The patient reports easy bruising but reports no swollen glands. The patient reports no fever, no night sweats, no significant weight gain, no significant weight loss. No significant exercise tolerance. The patient reports no dry eyes, no irritation, no vision change. Patient reports no difficulty hearing and no ear pain. Patient reports no frequent nose bleeds or nose and sinus problems. Patient reports on arm pain on exertion. No shortness of breath while lying down. No history of heart murmur. Patient reports no cough, no wheezing or coughing up blood. Patient reports no abdominal pain, no vomiting. Normal appetite. No diarrhea and not vomiting blood. No nausea and no constipation. Patient reports no incontinence. No difficulty urinating. No hematuria. No increased frequency. Patient reports no muscle aches. No weakness, no arthralgias, no back pain. No swelling of the extremities. Patient reports no abnormal mole, no jaundice, no rashes. Reports no loss of consciousness. No weakness and no numbness. No seizures, dizziness, or headaches. The patient reports no depression, no sleep disturbance, feeling safe in a relationship and no alcohol abuse. Patient reports on fatigue. Reports no runny nose or sinus pressure. No itching, no hives, and no frequent sneezing. PHYSICAL EXAMINATION: GENERAL: Pleasant female in no acute distress. NECK: No JVD or bruit. VITAL SIGNS: Blood pressure 103/47, pulse 67, paced. HEENT: Normocephalic, atraumatic. NECK: No bruits are noted. CONSULT REPORT [id number] PAPO MAHMOOD HEART: Regular, II/ systolic ejection murmur. LUNGS: Fair air excursion. ABDOMEN: Soft, nontender. EXTREMITIES: Pulses 1+. There is no edema. DIAGNOSTIC DATA: EKG shows ventricular pacing. IMPRESSION: We will check echocardiographic studies as well as carotid Dopplers. She does have some ventricular high rates intermittently, suspect given age and increased creatinine, would not be a good candidate for digoxin. We will increase carvedilol to help with high rate episodes. Further recommendations based on the above. TRANSINT:[id number] Voice Confirmation ID: [id number] DOCUMENT ID: [id number] JASBIR LEONARD MD at 0849 CC: [id number] DICTATION DATE: 12/03/19 0844 COMMUNITY DEVELOPMENT COORDINATOR: 12/03/19 1236 ADM IN [facility] [address] [place] [address]
[2019-12-04 09:50] VITALS: BP 132/56
[2019-12-04 15:19] VITALS: Ht 162.6 cm; Wt 80.9 kg
[2019-12-04 17:23] VITALS: BP 120/45
--- NOTE | 2019-12-04 17:28 | NUR ---
PATIENT IS SITTING UP IN BED. FAMILY AT BEDSIDE. IV INFUSING ORDERED. PATIENT DENIES ANY NEEDS AT THIS TIME.
--- NOTE | 2019-12-04 18:14 | MORECARE ---
CASE MANAGEMENT DISCHARGE SUMMARY PATIENT: PAPO MAHMOOD UNIT: [id number] ADM DATE: 12/02/19 AGE: 79 : 40 SEX: F ROOM/BED: D.0161 AUTHOR: ALBERTINADOC PHYSICIAN: REFERRING PHYSICIAN: JASBIR RODAS MD DATE OF SERVICE: 12/04/19 Discharge Plan Patient Name: PAPO MAHMOOD Facility: [facility]:[place] : 1940 Planned Disposition: Home Anticipated Discharge Date: 12/04/19 Discharge Date: Expected LOS: 2 Initial Reviewer: [email or web address] Initial Review Date: 12/02/2019 Generated: 12/04/19 7:13 pm Comments DCP- Discharge Planning Updated by [email or web address]: Tomy Flores on 12/04/19 5:[address] Patient Name: PAPO MAHMOOD Encounter No: [id number] : 1940 Primary Insurance: NOVJovie Anticipated DC Date: 12-04-2019 Planned Disposition: Home DCP follow-up note: CM MET WITH PT IN ROOM TO DISCUSS DISCHARGE NEEDS AND PLANNING. CM DISCUSSED AVAILABILITY OF HOME HEALTH, REHAB SERVICES AND MEDICAL EQUIPMENT. PT DENIES DISCHARGE NEEDS. SPOUSE TO TRANSPORT HOME AT DISCHARGE. IMPORTANT MESSAGE FROM MEDICARE PROVIDED AND EXPLAINED. JOSE Kang DCP- Discharge Planning Updated by [email or web address]: Nichelle Stapleton on 12/02/19 2:[address] CM met with patient to discuss initial discharge planning. Patient is in agreement to proceed with assessment with Rachell Nunez (dtr) present. Verified patient's address and telephone number. Patient is alert/oriented. Stairs/steps: Ramp, no rails. PCP: Dr. Parth Up. Pharmacy: [facility]. Patient states they have been able to obtain all of their prescribed medications. Patient lives with in her home, grandson stays with her at times. HHS: No. DME: No. Patient gives permission to speak with family members. Emergency contact: Rachell Nunez (dtr) [phone]. Patient is Independent with all ADL's, medication management. CM discussed the availability of HH, Rehab, DME services. Patient denies the need for additional services at this time and feels safe returning to previous environment. Patient denies being hospitalized within the past 30 days. 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 Transportation at time of discharge: Rachell Nunez (dtr). DCPIA - Discharge Planning Initial Assessment Updated by [id number]: Nichelle Stapleton on 12/02/19 3:23 pm * Is the patient Alert and Oriented? Yes * How many steps to enter\exit or inside your home? Ramp * PCP Dr. Parth Up * Pharmacy [facility] * Preadmission Environment Home with Family * ADLs Independent * Equipment None * Other Equipment NA * List name and contact numbers for known caregivers / representatives who currently or will assist patient after discharge: Rachell Nunez (dtr) [phone] * Verbal permission to speak to the caregivers and representatives has been obtained from the patient. Yes * Community resources currently utilized None * Please name any agencies selected above. NA * Additional services required to return to the preadmission environment? No * Can the patient safely return to the preadmission environment? Yes * Has this patient been hospitalized within the prior 30 days at any hospital? No Coverage Notice Reviewer: [id number] Gia Flores Notice Issued Date-Time: 12/04/2019 15:20 Notice Type: IM Discharge Notice Notice Delivered To: Patient Relationship to Patient: Care Coordination Manager Name: Delivery Method: HAND - Hand Delivered Angela Days: Prior Verbal Notification: Recipient Understood Notice: Yes Recipient Signature: Yes Med Rec Note Co-signed by Attending: Coverage Notice Comment: Last DP export: 12/02/19 2:29 pm Patient Name: PAPO MAHMOOD Page [phone] at 1814 All edits/amendments must be made on the electronic document DICTATION DATE: 12/04/191812 GENERAL SURGERY PHYSICIAN ASSISTANT: JAMAAL 12/04/191812 RPT#: [id number] DC DATE: STATUS: ADM IN [facility] [address] [place] [address] END OF REPORT
--- NOTE | 2019-12-04 19:22 | NUR ---
GREETED PATIENT AND INTRODUCED MYSELF HER NURSE. PT AOX4. RESTING QUIETLY WATCHING TV. RESPIRATIONS EVEN. NO S/S OF DISTRESS. STATES NO EVIDENCE OF PAIN AT THIS TIME. DENIES ANY FURTHER NEEDS. CALL LIGHT IN REACH.
[2019-12-04 20:00] VITALS: BP 128/54
--- NOTE | 2019-12-04 22:30 | NUR ---
PT. PULLED OUT PERIPHERAL IV IN RIGHT HAND. WILL ATTEMPT TO START A NEW ONE.
--- NOTE | 2019-12-04 23:00 | NUR ---
NEW 22 GAUGE PERIPHERAL IV IN LEFT HAND, SECOND ATTEMPT. PT. TOLERATED PROCEDURE.
--- NOTE | 2019-12-04 23:21 | NUR ---
PT. AWAKE LAYING IN BED WATCHING TV. DENIES ANY NEEDS AT THIS TIME. CALL LIGHT IN REACH. RESPIRATIONS EVEN. NO S/S OF DISTRESS.
[2019-12-05] VITALS: BP 120/52
--- NOTE | 2019-12-05 02:05 | NUR ---
PT. RESTING QUIETLY WITH EYES CLOSED. RESPIRATIONS EVEN. NO S/S OF DISTRESS. CALL LIGHT IN REACH.
[2019-12-05 04:00] VITALS: BP 117/51
[2019-12-05 06:45] LABS: BASOPHILS 0.6 % (0-2); EOSINOPHILS 1.7 % (0-7); HEMATOCRIT 30.6 % (36.0-48.0); HEMOGLOBIN 9.5 g/dL (12-16); IMMATURE GRANULOCYTES 1.3 % (0-5); LYMPHOCYTES 30.8 % (15-50); MCH 26.5 pg (26.0-34.0); MCV 85.2 fL (80.0-100.0); MEAN PLATELET VOLUME 9.3 fL (7.4-10.4); MONOCYTES 11.6 % (2-11); PLATELET COUNT 225 10x3/uL (130-400); RBC 3.59 10x6/uL (4.00-5.40); RDW 14.9 % (11.5-14.5); WBC 5.4 10x3/uL (4.8-10.8)
--- NOTE | 2019-12-05 07:23 | NUR ---
PT RESTING PEACEFULLY. EYES OPENED WHEN I ENTERED ROOM, BUT QUICKLY CLOSED AGAIN. BREATHS EVEN, REGULAR, AND UNALBORED. NO SIGNS OR SYMPTOMS OF ACUTE DISTRESS NTOED AT THIS TIME. NO FAMILY PRESENT AT BEDSIDE. CL IN REACH, SRX2.
[2019-12-05 07:39] LABS: ANION GAP 15.4 mmol/L (8-16); CALCIUM 8.1 mg/dL (8.5-10.1); CREATININE - SERUM 2.2 mg/dL (0.6-1.3); POTASSIUM - SERUM 4.4 mmol/L (3.5-5.1)
--- NOTE | 2019-12-05 09:22 | NUR ---
PT ALERT AND ORIENTED, STATES SHE'S FEELING PRETTY GOOD AND GOT DECENT REST LAST NIGHT. NO FAMILY AT BEDSIDE, BUT STATES HER DAUGHTER WILL BE BY LATER. TOOK PILLS WIHTOUT DIFFICULTY OR ASSITANCE. CL IN REACH, SRX2.
[2019-12-05 10:12] VITALS: BP 132/63
--- NOTE | 2019-12-05 11:45 | NUR ---
PT AWAKE AND ORIENTED, LYING IN BED WATHCING TV. NO COMPLAINTS OR CONCERNS, NO QUESTIONS AT THIS TIME. CL IN REACH, SRX2. NO FAMILY AT BEDSIDE.
--- NOTE | 2019-12-05 15:12 | NUR ---
PT ALERT AND ORIENTED, IN SHOWER WITH [employer] Z[employer]. DID NOT DISTURB FURTHER AT THIS TIME.
[2019-12-05] MEDS ORDERED: ULORIC40 MG PO (15:32)
--- NOTE | 2019-12-05 16:37 | MORECARE ---
CASE MANAGEMENT DISCHARGE SUMMARY PATIENT: PAPO MAHMOOD UNIT: [id number] ADM DATE: 12/02/19 AGE: 79 : 40 SEX: F ROOM/BED: D.2134 AUTHOR: ALBERTINA,DOC PHYSICIAN: REFERRING PHYSICIAN: JASBIR RODAS MD DATE OF SERVICE: 12/05/19 Discharge Plan Patient Name: PAPO MAHMOOD Facility: [facility]:[place] : 1940 Planned Disposition: Home Anticipated Discharge Date: 12/04/19 Discharge Date: Expected LOS: 2 Initial Reviewer: [email or web address] Initial Review Date: 12/02/2019 Generated: 12/05/19 5:36 pm Comments DCP- Discharge Planning Updated by [email or web address]: Shivani Baron on 12/05/19 3:[address] Patient Name: PAPO MAHMOOD Admission Status: ER Accout number: [id number] Admission Date: 12-02-2019 : 1940 Admission Diagnosis: Attending: TONIO Current LOS: 3 Anticipated DC Date: 12-04-2019 Planned Disposition: Home Primary Insurance: NOVASYSMCR Discharge Planning Comments: FAMILY HERE TO MICROBIOLOGICAL LABORATORY TECHNICIAN. PATIENT TO DC TO HOME WITH FAMILY, IMM SIGNED. Lead Informatica Developer: Shivani Baron DCP- Discharge Planning Updated by [email or web address]: Tomy Flores on 12/04/19 5:[address] Patient Name: PAPO MAHMOOD Encounter No: [id number] : 1940 Primary Insurance: NOVASYSMCR Anticipated DC Date: 12-04-2019 Planned Disposition: Home DCP follow-up note: CM MET WITH PT IN ROOM TO DISCUSS DISCHARGE NEEDS AND PLANNING. CM DISCUSSED AVAILABILITY OF HOME HEALTH, REHAB SERVICES AND MEDICAL EQUIPMENT. PT DENIES DISCHARGE NEEDS. SPOUSE TO TRANSPORT HOME AT DISCHARGE. IMPORTANT MESSAGE FROM MEDICARE PROVIDED AND EXPLAINED. Tomy Flores CASE MANAGEMENT DCP- Discharge Planning Updated by [id number]: Nichelle Stapleton on 12/02/19 2:[address] CM met with patient to discuss initial discharge planning. Patient is in agreement to proceed with assessment with Rachell Nunez (anaya) present. Verified patient's address and telephone number. Patient is alert/oriented. Stairs/steps: Ramp, no rails. PCP: Dr. Parth Up. Pharmacy: [facility]. Patient states they have been able to obtain all of their prescribed medications. Patient lives with in her home, grandson stays with her at times. HHS: No. DME: No. Patient gives permission to speak with family members. Emergency contact: Rachell Nunez (dtr) [phone]. Patient is Independent with all ADL's, medication management. CM discussed the availability of HH, Rehab, DME services. Patient denies the need for additional services at this time and feels safe returning to previous environment. Patient denies being hospitalized within the past 30 days. Patient denies the use of community resources CURRENCY EXCHANGE SPECIALIST. Transportation at time of discharge: Rachell Nunez (dtr). DCPIA - Discharge Planning Initial Assessment Updated by [email or web address]: Nichelle Stapleton on 12/02/19 3:23 pm * Is the patient Alert and Oriented? Yes * How many steps to enter\exit or inside your home? Ramp * PCP Dr. Parth Up * Pharm[facility] * Preadmission Environment Home with Family * ADLs Independent * Equipment None * Other Equipment NA * List name and contact numbers for known caregivers / representatives who currently or will assist patient after discharge: Rachell Nunez (dtr) [phone] * Verbal permission to speak to the caregivers and representatives has been obtained from the patient. Yes * Community resources currently utilized None * Please name any agencies selected above. NA * Additional services required to return to the preadmission environment? No * Can the patient safely return to the preadmission environment? Yes * Has this patient been hospitalized within the prior 30 days at any hospital? No Coverage Notice Reviewer: [id number] - Tomy Flores Notice Issued Date-Time: 12/04/2019 15:20 Notice Type: IM Discharge Notice Notice Delivered To: Patient Relationship to Patient: Trestle Builder Name: Delivery Method: HAND - Hand Delivered Angela Days: Prior Verbal Notification: Recipient Understood Notice: Yes Recipient Signature: Yes Med Rec Note Co-signed by Attending: Coverage Notice Comment: Reviewer: [email or web address] Gia Baron Notice Issued Date-Time: 12/05/2019 16:33 Notice Type: IM Discharge Notice Notice Delivered To: Patient Relationship to Patient: Trestle Builder Name: Delivery Method: HAND - Hand Delivered Angela Days: Prior Verbal Notification: Recipient Understood Notice: Yes Recipient Signature: Yes Med Rec Note Co-signed by Attending: Coverage Notice Comment: Last DP export: 12/04/19 5:14 p Patient Name: PAPO MAHMOOD Page [id number] at 1637 All edits/amendments must be made on the electronic document DICTATION DATE: 12/05/191635 COMMERCIAL MAKEUP ARTIST: JAMAAL 12/05/191635 RPT#: [id number] DC DATE: STATUS: ADM IN [facility] [address] [place] [address] END OF REPORT
--- NOTE | 2019-12-05 18:01 | NUR ---
PT ESCORTED OUT VIA WHEELCAHIR TO DAUGHTERS POV.
== END 2019-12-05 18:01 | disposition home or self-care (01) | DRG 640 ==
LOC: D.ER 11:12 → D.M2 14:06
PROVIDERS: Family Medicine; Internal Medicine Nephrology; ADMIT Family Medicine; ATTEND Family Medicine
DX: E86.0 Dehydration (principal); N17.0 Acute kidney failure with tubular necrosis; I48.20 Chronic atrial fibrillation, unspecified; R55 Syncope and collapse; D64.9 Anemia, unspecified; E11.65 Type 2 diabetes mellitus with hyperglycemia; Z79.01 Long term (current) use of anticoagulants; K21.9 Gastro-esophageal reflux disease without esophagitis; K52.9 Noninfective gastroenteritis and colitis, unspecified; I11.0 Hypertensive heart disease with heart failure; I50.9 Heart failure, unspecified; E66.9 Obesity, unspecified; Z68.29 Body mass index [BMI] 29.0-29.9, adult; Z95.0 Presence of cardiac pacemaker

== ENCOUNTER → 2020-01-25 13:33 | Outpatient (CLI) | payer OTHER ==
[2019-12-04 15:19] VITALS: BMI 30.5
[~2020-01-25 13:33] MED LIST changes: +CARAFATE1 G PO; +LASIX20 MG PO; +ULORIC40 MG PO
== END | disposition home or self-care (01) ==
LOC: D.CT 13:33
PROVIDERS: ATTEND Family Medicine
DX: J01.81 Other acute recurrent sinusitis (principal)